=== PATIENT | male | born 1955 | race Caucasian/White ===

== ENCOUNTER 2017-11-23 14:30 | Outpatient (RCR) | payer MEDICARE ==
[2016-06-16 16:58] VITALS: BMI 24.1
--- NOTE | 2017-08-30 12:06 | PT INITIAL EVALUATION ---
MEDICAL DIAGNOSIS: Dizziness, Headaches TREATMENT DIAGNOSIS: Dizziness, Headaches, Cervicalgia DATE OF ONSET: 08/24/17 SUBJECTIVE: Omar is a 62 year-old male presenting to physical therapy following a recent increase of dizziness and headaches. Headaches started around August 06 when he fell and hit his head on a coffee table, on the day following he fell off of the couch which make the headache worse and started the dizziness. In addition pt has an extensive history of neck and spinal pain with radiation in to extremities which has increased with recent falls. Pt reports pain and dizziness is increased with forward flexion when tying shoes, and when getting out of bed. Pt denies any increase with rolling in bed but not with certainty. Pt reports that sometimes at rest pain comes on as well as dizziness and really never goes away. Pt's is present throughout session. 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 OBJECTIVE: Pt has discoordinated palsy-like movements with decreased ability to maintain in a stationary position Posture: Forward trunk lean in standing with rounded shoulders, increased cervical lordosis and forward head ROM: Cervical ROM: flexion: full ROM with pain and headache, ext: full ROM with pain in chest and neck and dizziness, R rotation: Full ROM with pain on R side of neck and face radiating down R arm, L rotation: minimally dec ROM without pain, R side bending: moderate ROM restrictions with pain on R lateral neck, L side bending: moderate ROM restrictions with pain on L lateral neck Palpation: Pt is tender to palpation along all pericervical muscles and up into the occiput Special Tests: Vertebral Artery Testing: B (+) L>R dizziness in position with increased headache as well as pupillary constriction and dilation, no nystagmus present, symptoms decreased with return to neutral, symptoms increased as well with return to seated from test position. Mobility: Visual tracking without nystagmus in all motions or onset of dizziness , L eye convergence intact with R eye delay or maltracking Gait: Unsteady gait with wide TRICIA and frequent UE reaching for stability Other Objective Findings: BP 130/90 mmHg, Oxygen Sat 93% ASSESSMENT: Pt shows signs and symptoms of possible positional vertigo complicated by cervicalgia and possible recent TBI. Pt referred back to physician at this time for further testing including US of vertebral arteries and neuro consult as well. Physical therapy is indicated following clearance to decrease pt impairments listed above to improve pt function with ADL's. Short Term Goals In 3 weeks pt will report dizziness only with change in position and not at rest for improved functional mobility with ADL's. In 6 weeks pt will have <2 headaches per week for improved functional mobility with ADL's. In 6 weeks pt will improve cervical ROM to full without pain for improved functional ability to perform ADL's. In 6 weeks pt will be able to ambulate 1 lap around the track without LOB or UE reaching for improved functional gait with ambulation and ADL's. Patient's Goals Decrease dizziness and headaches PLAN: Patient to be seen for Manual Therapy/STM/MET Strengthening/condition Ice/Heat Range of Motion Spinal Stabilization Ultrasound Stretching Iontophoresis Neuromuscular Re-ed Closed Chain Program Electrical Stim Posture/Body mechanics Gait Trg/Balance Trg Biofeedback Home Exercise Program Mech./Manual Traction Therapeutic Activities 3x/Week for 6 Weeks If you have any questions, comments, or concerns about this report or plan, please contact me at . Thank you, Shila Lux, PT, DPT, CLT MTDD
--- NOTE | 2017-10-18 15:22 | PT PLAN OF CARE ---
Physician: JANINA Valencia Patient is being seen: 2-3x/Week Therapist: Shila Lux, PT, DPT, CLT Medical Diagnosis: Dizziness, Headaches Treatment Diagnosis: Dizziness, Headaches, Cervicalgia Date of Onset: 08/24/17 Date of Initial Evaluation: 08/29/17 Date patient was last seen: 10/17/17 Number of treatments: 10 Number of cancellations/No shows: 0 INTERVENTIONS: Manual Therapy/STM/MET Strengthening/condition Ice/Heat Range of Motion Spinal Stabilization Ultrasound Stretching Iontophoresis Neuromuscular Re-ed Closed Chain Program Electrical Stim Posture/Body mechanics Gait Trg/Balance Trg Biofeedback Home Exercise Program Mech./Manual Traction Therapeutic Activities GOALS: In 3 weeks pt will report dizziness only with change in position and not at rest for improved functional mobility with ADL's. MET In 6 weeks pt will have <2 headaches per week for improved functional mobility with ADL's. In Progress In 6 weeks pt will improve cervical ROM to full without pain for improved functional ability to perform ADL's. In Progress In 6 weeks pt will be able to ambulate 1 lap around the track without LOB or UE reaching for improved functional gait with ambulation and ADL's. MET PATIENT'S GOAL: Decrease dizziness and headaches Status of Patient's Goals: In Progress Patient Compliance: Good Prognosis: Good Reasons for continuing therapy: Omar shows improvement with treatment with decreased radiating pain in his R arm, decreased headaches overall to only around 20% of the time as well as decreased dizziness now only occurring with positional change. Pt to be reassessed and further sessions for BPPV as cervical pain has decreased and pt is able to more tolerate test positions. Pt cervical ROM shows improvements with lingering deficits left side movement. ROM: Cervical ROM: flexion: 34 degrees, ext: 40 degrees with dizziness, R rotation: 80 degrees, L rotation: 70 degrees, R side bendin degrees, L side bendin degrees Palpation: Pt is tender to palpation along all pericervical muscles and up into the occiput If you have any questions or concerns, please feel free to contact me at [phone]. Thank you, Shila Lux, PT, DPT, CLT [facility]
--- NOTE | 2017-11-16 16:44 | PT PLAN OF CARE ---
Physician: JANINA Valencia Patient is being seen: 2-3x/Week Therapist: Shila Lux, PT, DPT, CLT Medical Diagnosis: Dizziness, Headaches Treatment Diagnosis: Dizziness, Headaches, Cervicalgia Date of Onset: 08/24/17 Date of Initial Evaluation: 08/29/17 Date patient was last seen: 11/16/17 Number of treatments: 20 Number of cancellations/No shows: 3 INTERVENTIONS: Manual Therapy/STM/MET Strengthening/condition Ice/Heat Range of Motion Spinal Stabilization Ultrasound Stretching Iontophoresis Neuromuscular Re-ed Closed Chain Program Electrical Stim Posture/Body mechanics Gait Trg/Balance Trg Biofeedback Home Exercise Program Mech./Manual Traction Therapeutic Activities GOALS: In 3 weeks pt will report dizziness only with change in position and not at rest for improved functional mobility with ADL's. MET In 6 weeks pt will have <2 headaches per week for improved functional mobility with ADL's. In Progress In 6 weeks pt will improve cervical ROM to full without pain for improved functional ability to perform ADL's. In Progress In 6 weeks pt will be able to ambulate 1 lap around the track without LOB or UE reaching for improved functional gait with ambulation and ADL's. MET PATIENT'S GOAL: Decrease dizziness and headaches Status of Patient's Goals: In Progress Patient Compliance: Good Prognosis: Good Reasons for continuing therapy: Omar shows improved functional ambulation without any dizziness or loss of balance. R UE pain continues to show progress with centralization of pain to the shoulder and neck only without radiation into the elbow except when pt is not performing his exercises. Following recent fall pt had increased pain and stiffness which shows improvement with ambulation. Further PT is indicated to continue with centralization and decrease in pain as well as improve pt function with dizziness and decrease headaches. ROM: Cervical ROM: flexion: 45 degrees, ext: 40 degrees, R rotation: 80 degrees , L rotation: 70 degrees, R side bendin degrees, L side bendin degrees Palpation: Pt is tender to palpation along all pericervical muscles and up into the occiput If you have any questions or concerns, please feel free to contact me at . Thank you, Shila Lux, PT, DPT, CLT [facility]
[~2017-11-23 14:30] MED LIST: AMIT-108 PO; ARI2 PO; BUPR-126 PO; CITA-141 PO; CLON-298 PO; DIA5 PO; DIAZ-305 PO; DOCU-416 PO; GABA-549 PO; HYDR50CA48 PO; IBUP800T37 PO; KET10 PO; LEVO25TA57 PO; LOR5/325 PO; MECL25TA9 PO; MELA1TAB23 PO; MELO-207 PO; MIRT-1; MIRT-18 PO; MIRT-20 PO; MIRT-22 PO; MULT-1167 PO; MULT-1379 PO; OMEP-125 PO; ONDA4TAB PO; ONDA4TAB97 PO; OXYC-865 PO; PANT20TA27 PO; PARO40TA88 PO; PRAM0.2520 PO; PRAM0.2524 PO; PRED-1 PO; RIV10 PO; SUCR1TAB51 PO; TAMS0.4C70 PO; [UNRECOGNIZED DRUG - CODE] MM; [UNRECOGNIZED DRUG - REMARK]
== END 2017-11-27 ==
LOC: PT 14:30
PROVIDERS: ATTEND Physician Assistant
DX: R42 Dizziness and giddiness (principal); R51 Headache; R11.10 Vomiting, unspecified; R19.7 Diarrhea, unspecified; R91.1 Solitary pulmonary nodule; Z87.891 Personal history of nicotine dependence; Z87.820 Personal history of traumatic brain injury; M54.2 Cervicalgia
CPT/HCPCS: 97163

== ENCOUNTER 2017-12-13 11:15 | Outpatient (RCR) | payer MEDICARE ==
[2016-06-16 16:58] VITALS: BMI 24.1
--- NOTE | 2017-12-13 12:32 | PT PLAN OF CARE ---
Physician: JANINA Valencia Patient is being seen: 2-3x/Week Therapist: Shila Lux, PT, DPT, CLT Medical Diagnosis: Dizziness, Headaches Treatment Diagnosis: Dizziness, Headaches, Cervicalgia Date of Onset: 08/24/17 Date of Initial Evaluation: 08/29/17 Date patient was last seen: 12/13/17 Number of treatments: 24 Number of cancellations/No shows: 3 INTERVENTIONS: Manual Therapy/STM/MET Strengthening/condition Ice/Heat Range of Motion Spinal Stabilization Ultrasound Stretching Iontophoresis Neuromuscular Re-ed Closed Chain Program Electrical Stim Posture/Body mechanics Gait Trg/Balance Trg Biofeedback Home Exercise Program Mech./Manual Traction Therapeutic Activities GOALS: In 3 weeks pt will report dizziness only with change in position and not at rest for improved functional mobility with ADL's. MET In 6 weeks pt will have <2 headaches per week for improved functional mobility with ADL's. MET In 6 weeks pt will improve cervical ROM to full without pain for improved functional ability to perform ADL's. MET In 6 weeks pt will be able to ambulate 1 lap around the track without LOB or UE reaching for improved functional gait with ambulation and ADL's. MET PATIENT'S GOAL: Decrease dizziness and headaches Status of Patient's Goals: 4/4 Goals MET Patient Compliance: Good Prognosis: Good Reasons for discharge from therapy: Omar is to discharge from physical therapy at this time secondary to completion of 4/4 functional goals. Despite gains in cervical motion and mobility pt shows lingering pain and muscular tightness in remaining in the anterior chest, neck and shoulders. However, pain is reduced with improved posture and cervical extension when pt is compliant with HEP. Upon discharge pt reports that dizziness is now only a couple times a week and goes away quickly. Pt is to follow up with further PT at a later time if pain persists and when compliance is more likely. ROM: Cervical ROM: Full with stretch sensation only with L SB Palpation: Pt is tender to palpation along all pericervical muscles and up into the occiput If you have any questions or concerns, please feel free to contact me at [phone]. Thank you, Shila Lux, PT, DPT, CLT [facility]
== END 2017-12-13 18:00 | disposition home or self-care (01) ==
LOC: PT 11:15
PROVIDERS: ATTEND Physician Assistant
DX: R42 Dizziness and giddiness (principal); R51 Headache; R11.10 Vomiting, unspecified; R19.7 Diarrhea, unspecified; R91.1 Solitary pulmonary nodule; Z87.891 Personal history of nicotine dependence; Z87.820 Personal history of traumatic brain injury; M54.2 Cervicalgia; E03.9 Hypothyroidism, unspecified

== ENCOUNTER 2018-01-10 01:39 | Emergency (ER) | payer MEDICARE ==
[2016-06-16 16:58] VITALS: Wt 77.1 kg
[~2018-01-10 01:39] MED LIST changes: -ACET-1966 PO; -DIAZ1KIT6 RC; -LEVE-14 PO; -TIZA2CAP7 PO
[2018-01-10] MEDS ORDERED: NS(*) 0.9% 1000 ML BAG 1,000 ML IV ONE (01:50)
[2018-01-10] MEDS ORDERED: ACET-1966 PO (02:06)
[2018-01-10] MEDS ORDERED: OMEP-125 PO (02:06)
[2018-01-10] MEDS ORDERED: TIZA2CAP7 PO (02:06)
--- NOTE | 2018-01-10 02:08 | ER Report ---
History and Physical Time Seen By MD: 01:43 Hx. of Stated Complaint: PT HAD SEIZURE THIS TONIGHT. HAS HISTORY OF SAME. COMBATIVE ON SCENE. 2 MG ATIVAN IM GIVEN IN FIELD. HPI/ROS CHIEF COMPLAINT: Seizure HISTORY OF PRESENT ILLNESS: 62-year-old male is currently undergoing a workup for seizures but EEG was normal he is pending a sleep study at this time and is following with her neurologist presents with seizure activity including foaming at the mouth I rolling tonic-clonic convulsion of trunk and 4 extremities per followed by a postictal state where he is usually around incoherently in the house. He was brought in by EMS. 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 REVIEW OF SYSTEMS: Constitutional: No fever, no chills. Eyes: No discharge. ENT: No sore throat. Cardiovascular: No chest pain, no palpitations. Respiratory: No cough, no shortness of breath. Gastrointestinal: No abdominal pain, no vomiting. Genitourinary: No hematuria. Musculoskeletal: No back pain. Skin: No rashes. Neurological: No headache. Allergies: Coded Allergies: No Known Drug Allergies (Unverified , 01/10/18) Home Meds Reported Medications Tizanidine Hcl (ZANAFLEX) 2 Mg Capsule, 2 MG PO TID, CAPSULE 01/10/18 Omeprazole (OMEPRAZOLE) 20 Mg Capsule.dr, 1 CAP PO DAILY, CAP 01/10/18 Acetaminophen (TYLENOL) 325 Mg Tablet, 325 MG PO Q6H Y for PAIN, TAB 01/10/18 Meclizine Hcl (MECLIZINE HCL) 25 Mg Tablet, 25 MG PO BID 08/24/17 Hydroxyzine Pamoate (HYDROXYZINE PAMOATE) 50 Mg Capsule, 50 MG PO DAILY, CAPSULE 03/14/17 Amitriptyline Hcl (AMITRIPTYLINE HCL) 50 Mg Tablet, 50 MG PO QHS, #5 TAB 03/14/17 Pramipexole Di-Hcl (PRAMIPEXOLE DIHYDROCHLORIDE) 0.25 Mg Tablet, 1 TAB PO DAILY , #30 05/21/16 Levothyroxine Sodium (SYNTHROID) 25 Mcg Tablet, 50 MCG PO QDAY 11/05/15 Multivitamin With Minerals (MEN'S ONE DAILY) 1 Each Tablet, 1 EACH PO DAILY 02/01/15 Discontinued Reported Medications Melatonin (MELATONIN) 1 Mg Tablet, 1 MG PO DAILY 08/24/17 Hx Smoking: No Smoking Status: Never Smoker Exposure to Second Hand Smoke?: No Hx Substance Use Disorder: No Hx Alcohol Use: Yes (quit long time ago) Constitutional Vital Sign - Last 24 Hours 01/10/18 01/10/18 01:43 02:02 Temp 97.8 Pulse 86 Resp 14 B/P (MAP) 124/61 Pulse Ox 85 O2 Delivery Room Air O2 Flow Rate 2.0 Physical Exam General Appearance: The patient is alert, has no immediate need for airway protection and no signs of toxicity. Acute distress Eyes: Pupils equal and round no pallor or injection. ENT, Mouth: Mucous membranes are moist. Respiratory: There are no retractions, lungs are clear to auscultation. Cardiovascular: Regular rate and rhythm. No murmurs gallops or rubs Gastrointestinal: Abdomen is soft and non tender, no masses, bowel sounds normal. Neurological: Normal sensorimotor exam to cranial nerves Skin: Warm and dry, no rashes. Musculoskeletal: Neck is supple non tender. Extremities are nontender, nonswollen and have full range of motion. [ ] DIFFERENTIAL DIAGNOSIS: After history and physical exam differential diagnosis was considered for seizure, intracranial hemorrhage, encephalitis, West Nile, typical seizure related behavior, other etiology including psychiatric disorder Medical Decision Making Data Points Result Diagram: 01/10/18 0330 01/10/18 0330 Laboratory Hematology Test 01/10/18 03:30 01/10/18 03:40 Red Blood Count 5.14 M/uL (4.00-5.60) Mean Corpuscular Volume 86.2 fL (80.0-96.0) Mean Corpuscular Hemoglobin 30.1 pg (26.0-33.0) Mean Corpuscular Hemoglobin Concent 34.9 g/dL (32.0-36.0) Red Cell Distribution Width 12.5 % (11.5-14.5) Mean Platelet Volume 6.7 fL (7.2-11.1) Neutrophils (%) (Auto) 82.0 % (39.4-72.5) Lymphocytes (%) (Auto) 11.8 % (17.6-49.6) Monocytes (%) (Auto) 4.5 % (4.1-12.4) Eosinophils (%) (Auto) 1.1 % (0.4-6.7) Basophils (%) (Auto) 0.6 % (0.3-1.4) Nucleated RBC Relative Count (auto) 0.0 /100WBC Neutrophils # (Auto) 7.8 K/uL (2.0-7.4) Lymphocytes # (Auto) 1.1 K/uL (1.3-3.6) Monocytes # (Auto) 0.4 K/uL (0.3-1.0) Eosinophils # (Auto) 0.1 K/uL (0.0-0.5) Basophils # (Auto) 0.1 K/uL (0.0-0.1) Nucleated RBC Absolute Count (auto) 0.00 K/uL Prothrombin Time 14.2 seconds (12.0-14.4) Prothromb Time International Ratio 1.09 Activated Partial Thromboplast Time 26 seconds (23-35) Sodium Level 139 mmol/L (137-145) Potassium Level 3.6 mmol/L (3.5-5.0) Chloride Level 105 mmol/L (98-107) Carbon Dioxide Level 24 mmol/L (22-30) Blood Urea Nitrogen 13 mg/dl (9-21) Creatinine 1.00 mg/dl (0.66-1.25) Glomerular Filtration Rate Calc > 60.0 Random Glucose 129 mg/dl (75-110) Calcium Level 9.2 mg/dl (8.4-10.2) Total Bilirubin 0.8 mg/dl (0.2-1.3) Aspartate Amino Transf (AST/SGOT) 36 U/L (0-35) Alanine Aminotransferase (ALT/SGPT) 48 U/L (0-56) Alkaline Phosphatase 65 U/L (0-126) Troponin I < 0.012 ng/ml B-Type Natriuretic Peptide 14 pg/ml (0-100) Total Protein 6.2 gm/dl (6.3-8.2) Albumin 3.6 g/dl (3.5-5.0) Serum Alcohol < 10 mg/dl Urine Opiates Screen Negative Urine Barbiturates Screen Negative Ur Tricyclic Antidepressants Screen Positive Urine Phencyclidine Screen Negative Urine Amphetamines Screen Negative Urine Benzodiazepines Screen Negative Urine Cocaine Screen Negative Urine Cannabinoids Screen Negative Chemistry Test 01/10/18 03:30 01/10/18 03:40 White Blood Count 9.5 k/uL (4.5-11.0) Red Blood Count 5.14 M/uL (4.00-5.60) Hemoglobin 15.5 g/dL (14.0-18.0) Hematocrit 44.3 % (42.0-52.0) Mean Corpuscular Volume 86.2 fL (80.0-96.0) Mean Corpuscular Hemoglobin 30.1 pg (26.0-33.0) Mean Corpuscular Hemoglobin Concent 34.9 g/dL (32.0-36.0) Red Cell Distribution Width 12.5 % (11.5-14.5) Platelet Count 228 K/uL (150-450) Mean Platelet Volume 6.7 fL (7.2-11.1) Neutrophils (%) (Auto) 82.0 % (39.4-72.5) Lymphocytes (%) (Auto) 11.8 % (17.6-49.6) Monocytes (%) (Auto) 4.5 % (4.1-12.4) Eosinophils (%) (Auto) 1.1 % (0.4-6.7) Basophils (%) (Auto) 0.6 % (0.3-1.4) Nucleated RBC Relative Count (auto) 0.0 /100WBC Neutrophils # (Auto) 7.8 K/uL (2.0-7.4) Lymphocytes # (Auto) 1.1 K/uL (1.3-3.6) Monocytes # (Auto) 0.4 K/uL (0.3-1.0) Eosinophils # (Auto) 0.1 K/uL (0.0-0.5) Basophils # (Auto) 0.1 K/uL (0.0-0.1) Nucleated RBC Absolute Count (auto) 0.00 K/uL Prothrombin Time 14.2 seconds (12.0-14.4) Prothromb Time International Ratio 1.09 Activated Partial Thromboplast Time 26 seconds (23-35) Glomerular Filtration Rate Calc > 60.0 Calcium Level 9.2 mg/dl (8.4-10.2) Total Bilirubin 0.8 mg/dl (0.2-1.3) Aspartate Amino Transf (AST/SGOT) 36 U/L (0-35) Alanine Aminotransferase (ALT/SGPT) 48 U/L (0-56) Alkaline Phosphatase 65 U/L (0-126) Troponin I < 0.012 ng/ml B-Type Natriuretic Peptide 14 pg/ml (0-100) Total Protein 6.2 gm/dl (6.3-8.2) Albumin 3.6 g/dl (3.5-5.0) Serum Alcohol < 10 mg/dl Urine Opiates Screen Negative Urine Barbiturates Screen Negative Ur Tricyclic Antidepressants Screen Positive Urine Phencyclidine Screen Negative Urine Amphetamines Screen Negative Urine Benzodiazepines Screen Negative Urine Cocaine Screen Negative Urine Cannabinoids Screen Negative Coagulation Test 01/10/18 03:30 Prothrombin Time 14.2 seconds Prothromb Time International Ratio 1.09 Activated Partial Thromboplast Time 26 seconds Toxicology Test 01/10/18 03:30 01/10/18 03:40 Serum Alcohol < 10 mg/dl Urine Opiates Screen Negative Urine Barbiturates Screen Negative Ur Tricyclic Antidepressants Screen Positive Urine Phencyclidine Screen Negative Urine Amphetamines Screen Negative Urine Benzodiazepines Screen Negative Urine Cocaine Screen Negative Urine Cannabinoids Screen Negative EKG/Imaging EKG Interpretation 12 lead EKG: My read O2 19 Rhythm: normal sinus rhythm [place]: normal QRS: normal ST segments: normal Overall impression: Normal EKG ED Course/Re-evaluation ED Course Sleeping comfortably daily arouse at this time 01/10/2018 5:00:13 am no seizure activity was witnessed wall in the ER. I recommended she call the neurologist tomorrow to follow-up and explain what happened and it sounds like he may be having seizures. Prolactin level will be sent out and should be followed up by outpatient PCP or neurologist. Results were discussed with the patient and his at this time 01/10/2018 5:00:53 am Decision to Disposition Date: Jan 10, 2018 Decision to Disposition Time: 05:01 Depart Departure Latest Vital Signs Vital Signs Date Time Temp Pulse Resp B/P (MAP) Pulse Ox O2 Delivery O2 Flow Rate FiO2 01/10/18 02:02 2.0 01/10/18 01:43 97.8 86 14 124/61 85 Room Air Impression: Primary Impression: Convulsions Condition: Improved Disposition: HOME OR SELF-CARE Referrals: JC MARTINEZ PA-C (PCP) New Scripts Diazepam (DIASTAT ACUDIAL) 1 Each Kit 1 EACH RC 1-2XD Y for SEIZURE, #1 KIT Prov: MALIA YANG MD 01/10/18 Patient Instructions: Recurrent Seizures in Adults (ED) Problem Qualifiers Primary Impression: Convulsions Convulsion type: unspecified Qualified Codes: R56.9 - Unspecified convulsions MALIA YANG MD Jan 10, 2018 02:08
[2018-01-10] MEDS ORDERED: ASPIRIN 81 MG CHEW PO ONE (02:15)
--- NOTE | 2018-01-10 02:54 | RADIOLOGY IMAGING REPORT ---
FACILITY: [facility] - [place] PATIENT NAME: Omar Zarate : 1955 MR: [id number] V: [id number] EXAM DATE: ORDERING PHYSICIAN: MALIA YANG TECHNOLOGIST: Location: [facility] [place] Patient: Omar Zarate : 1955 Visit/Account:[id number] Date of Sevice: 01/10/2018 Exam type: CHEST SINGLE AP History: Comparison: 08/28/2016. Findings: Lung volumes are low. There is pulmonary vascular and interstitial prominence which could represent i nterstitial edema without overt failure. No focal infiltrate, pleural effusion or pneumothorax. Heart size is slightly prominent. The osseous structures are unremarkable. IMPRESSION: 1. Perihilar pulmonary vascular and interstitial prominence could represent interstitial edema withou t overt failure. Report Dictated By: Gary Lawrence MD at 01/10/2018 2:47 AM Report E-Signed By: Gary Lawrence MD at 01/10/2018 2:49 AM WSN:[id number]
--- NOTE | 2018-01-10 02:57 | EKG ---
FACILITY: [facility] PATIENT NAME: JOSSY NEVAREZ : [id number] MR: [id number] V: [id number] EXAM DATE: ORDERING PHYSICIAN: MALIA YANG TECHNOLOGIST: RIC Test Reason : HTN Blood Pressure : / mmHG Vent. Rate : 077 BPM Atrial Rate : 077 BPM P-R Int : 168 ms QRS Dur : 092 ms QT Int : 390 ms P-R-T Axes : 073 059 060 degrees QTc Int : 441 ms Normal sinus rhythm Normal ECG When compared with ECG of 24-SEP-2016 13:56, Previous ECG has undetermined rhythm, needs review Nonspecific T wave abnormality no longer evident in Inferior leads Confirmed by MARI BELLA ([id number]) on 01/10/2018 12:31:05 PM Referred By: Confirmed By:MARI BELLA
--- NOTE | 2018-01-10 03:20 | RADIOLOGY IMAGING REPORT ---
FACILITY: [facility] - [place] PATIENT NAME: Omar Zarate : 1955 MR: [id number] V: [id number] EXAM DATE: ORDERING PHYSICIAN: MALIA YANG TECHNOLOGIST: Location: [facility] - [place] Patient: Omar Zarate : 1955 Visit/Account:[id number] Date of Sevice: 01/10/2018 HEAD W/O CONTRAST HISTORY: Altered mental status. History of seizures. Wheezing and dyspnea. COMPARISON: 07/13/2017 and studies dating to 05/07/2015. TECHNIQUE: Axial images were obtained from the skull base to the vertex without contrast. Sagittal an d coronal reformats were performed. One of the following dose optimization techniques was utilized in the performance of this exam: Autom ated exposure control; adjustment of the mA and/or kV according to the patient's size; or use of an i terative reconstruction technique. Specific details can be referenced in the facility's radiology CT exam operational policy. CONTRAST: None. FINDINGS: Brain: No intracranial hemorrhage, mass or edema. Ventricles and sulci: Sulci are normal. Ventricular size and configuration is normal. Osseous structures: Intact. 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 Sinuses and mastoids: There is mild mucosal thickening of the ethmoid sinuses. Nasal septum bows slig htly toward the right. The mastoids are clear. Orbits and soft tissues: Normal. IMPRESSION: 1. No acute intracranial abnormality. Report Dictated By: Angela Schultz at 01/10/2018 2:49 AM Report E-Signed By: Angela Schultz at 01/10/2018 2:54 AM WSN:[id number]
[2018-01-10 03:36] LABS: PLATELET COUNT, AUTOMATED 228 K/uL (150-450)
[2018-01-10 03:46] LABS: INR 1.09
[2018-01-10 05:00] VITALS: BP 117/83
[2018-01-10] MEDS ORDERED: DIAZ1KIT6 RC (05:03)
== END 2018-01-10 05:20 | disposition home or self-care (01) ==
LOC: ER 01:48
DX: R56.9 Unspecified convulsions (principal)
CPT/HCPCS: 36415; 70450; 71045; 80305; 83880; 84146; 84484; 85025; 85610; 85730; 93005; 96360; 99284; A9270; G0480; J7030; 80320; 82040; 82247; 82310; 82374; 82435; 82565; 82947; 84075; 84132; 84155; 84295; 84450; 84460; 84520

== ENCOUNTER 2018-01-10 21:23 | Emergency (ER) | payer MEDICARE ==
[2016-06-16 16:58] VITALS: Wt 77.2 kg
[~2018-01-10 21:23] MED LIST changes: +ACET-1966 PO; +DIAZ1KIT6 RC; +TIZA2CAP7 PO
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
[2018-01-10 23:01] VITALS: BP 121/92
[2018-01-10] MEDS ORDERED: DIPHTH/TETANUS/ACEL. PERTUSSIS IM ONLY ONE (23:20)
== END 2018-01-10 23:33 | disposition home or self-care (01) ==
LOC: ER 21:41
DX: S01.112A Laceration without foreign body of left eyelid and periocular area, initial encounter (principal)
CPT/HCPCS: 90471; 90715; 99282

== ENCOUNTER → 2018-01-10 | Outpatient (CLI) | payer MEDICARE ==
[2016-06-16 16:58] VITALS: BMI 24.1
[~2018-01-10] MED LIST changes: +ACET-1966 PO; +DIAZ1KIT6 RC; +LEVE-14 PO; +TIZA2CAP7 PO
== END ==
LOC: AMB 01:14
PROVIDERS: ATTEND Nurse Practitioner
DX: R41.82 Altered mental status, unspecified (principal); G40.909 Epilepsy, unspecified, not intractable, without status epilepticus
CPT/HCPCS: A0425; A0427

== ENCOUNTER 2018-01-13 11:58 | Emergency (ER) | payer MEDICARE ==
[2016-06-16 16:58] VITALS: Wt 77.1 kg
[2018-01-13] MEDS ORDERED: OLANZapine 10 MG VIAL IM ONLY ONE (12:20)
[2018-01-13] MEDS ORDERED: diphenhydrAMINE 50 MG/ML VIAL IM ONE (12:20)
[2018-01-13] MEDS ORDERED: WATER STERILE 10 ML VIAL IM ONLY ONE (12:20)
[2018-01-13] MEDS ORDERED: LORazepam 2 MG/ML VIAL IM ONE (12:20)
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
[2018-01-13 12:31] LABS: PLATELET COUNT, AUTOMATED 332 K/uL (150-450)
[2018-01-13] MEDS ORDERED: WATER FOR INJ,STERILE 20 ML 20 ML ONE (12:59)
[2018-01-13] MEDS ORDERED: levETIRAcetam 500 MG TAB PO ONE (13:05)
[2018-01-13] MEDS ORDERED: LEVE-14 PO (14:23)
[2018-01-13 14:30] VITALS: BP 98/83
== END 2018-01-13 15:00 | disposition home or self-care (01) ==
LOC: ER 12:07
DX: G40.909 Epilepsy, unspecified, not intractable, without status epilepticus (principal); F41.9 Anxiety disorder, unspecified
CPT/HCPCS: 83735; 84443; 85025; 96372; 99284; A4216; A9270; G0480; J1200; J2060; J3490; 80320; 80329; 82040; 82247; 82310; 82374; 82435; 82565; 82947; 84075; 84132; 84155; 84295; 84450; 84460; 84520

== ENCOUNTER → 2018-03-13 | Outpatient (CLI) | payer MEDICARE, BC ==
[2016-06-16 16:58] VITALS: BMI 24.1
[~2018-03-13] MED LIST changes: +LEVE-14 PO
== END ==
LOC: RESP 20:59
PROVIDERS: ATTEND Physician Assistant
DX: G47.33 Obstructive sleep apnea (adult) (pediatric) (principal)

== ENCOUNTER 2018-04-04 09:58 | Emergency (ER) | payer MEDICARE, BC ==
[2016-06-16 16:58] VITALS: Wt 73.5 kg
[~2018-04-04 09:58] MED LIST changes: -CLON-298 PO; +CLON-331 PO
--- NOTE | 2018-04-04 10:01 | ER Report ---
History and Physical Time Seen By MD: 10:00 HPI/ROS CHIEF COMPLAINT: Possible Esophageal foreign body HISTORY OF PRESENT ILLNESS: Patient is a 63-year-old male referred from the family practice office for possible esophageal foreign body. States he was taking his medications this morning and the 2nd pill felt like it got stuck. He localizes the discomfort to the area around the sternal notch. He is able tolerate liquids as well as saliva. He does report discomfort to that area. He denies ever having similar episodes in the past. REVIEW OF SYSTEMS: Constitutional: No fever, no chills. ENT: Sore throat, sensation of foreign body Cardiovascular: [No chest pain, no palpitations.] Respiratory: No cough, no shortness of breath. Gastrointestinal: No abdominal pain, no vomiting. \\ Allergies: Coded Allergies: No Known Drug Allergies (Unverified , 04/04/18) Home Meds Active Scripts Levetiracetam (KEPPRA) 500 Mg Tablet, 500 MG PO BID, #60 TAB Prov:VIKASH DIXON 01/13/18 Diazepam (DIASTAT ACUDIAL) 1 Each Kit, 1 EACH RC 1-2XD Y for SEIZURE, #1 KIT Prov:MALIA YANG MD 01/10/18 Reported Medications Tizanidine Hcl (ZANAFLEX) 2 Mg Capsule, 2 MG PO TID, CAPSULE 01/10/18 Omeprazole (OMEPRAZOLE) 20 Mg Capsule.dr, 1 CAP PO DAILY, CAP 01/10/18 Acetaminophen (TYLENOL) 325 Mg Tablet, 325 MG PO Q6H Y for PAIN, TAB 01/10/18 Hydroxyzine Pamoate (HYDROXYZINE PAMOATE) 50 Mg Capsule, 50 MG PO DAILY, CAPSULE 03/14/17 Amitriptyline Hcl (AMITRIPTYLINE HCL) 50 Mg Tablet, 50 MG PO QHS, #5 TAB 03/14/17 Pramipexole Di-Hcl (PRAMIPEXOLE DIHYDROCHLORIDE) 0.25 Mg Tablet, 1 TAB PO DAILY , #30 05/21/16 Levothyroxine Sodium (SYNTHROID) 25 Mcg Tablet, 50 MCG PO QDAY 11/05/15 Multivitamin With Minerals (MEN'S ONE DAILY) 1 Each Tablet, 1 EACH PO DAILY 02/01/15 Past Medical/Surgical History History of hypothyroidism, history of traumatic brain injury 10 years ago. Hx Smoking: No Smoking Status: Never Smoker Exposure to Second Hand Smoke?: No Hx Substance Use Disorder: No Hx Alcohol Use: Yes (quit long time ago) Constitutional Vital Sign - Last 24 Hours 04/04/18 04/04/18 04/04/18 04/04/18 10:02 10:02 10:30 10:58 Temp 97.6 Pulse 62 59 Resp 20 B/P (MAP) 110/93 (99) 110/93 117/81 (93) Pulse Ox 93 95 O2 Delivery Room Air 04/04/18 04/04/18 11:00 11:30 B/P (MAP) 120/85 (97) 113/86 (95) Physical Exam General Appearance: The patient is alert, has no immediate need for airway protection and no current signs of toxicity. Eyes: Pupils equal and round no injection. Oropharynx: Clear mucous membranes moist. Patient is able to speak in full sentences and is tolerating secretions well. Respiratory: Chest is non tender, lungs are clear to auscultation. Cardiac: regular rate and rhythm Gastrointestinal: Abdomen is soft and non tender, no masses, bowel sounds normal. Musculoskeletal: Neck: Neck is supple and non tender. Extremities have full range of motion and are non tender. Skin: No rashes or lesions. Medical Decision Making EKG/Imaging Imaging Esophagram reveals no foreign body ED Course/Re-evaluation ED Course 04/04/2018 10:30:45 am my suspicion is the patient may be suffering from a "pill esophagitis". Patient appears to tolerate fluids without difficulty. He has no respiratory distress or complaints. He does point to the sternal notch as the location of his discomfort. Plan at this time will be x-ray of the chest. We'll also consider some type of esophageal foreign body swallowing test. Decision to Disposition Date: Apr 04, 2018 Decision to Disposition Time: 12:56 Depart Departure Latest Vital Signs Vital Signs Date Time Temp Pulse Resp B/P (MAP) Pulse Ox O2 Delivery O2 Flow Rate FiO2 04/04/18 11:30 113/86 (95) 04/04/18 10:58 59 95 04/04/18 10:02 97.6 20 Room Air Impression: Primary Impression: Dysphagia Condition: Improved Disposition: HOME OR SELF-CARE Referrals: JC MARTINEZ PA-C (PCP) 2 Days if symptoms persist New Scripts Mag Hydrox/Aluminum Hyd/Simeth (Maalox Advanced Suspension) 200 Mg-200 Mg-20 Mg/ 5 Ml Oral.susp 5 ML PO Q6H for throat discomfort, #120 ML 0 Refills Prov: PATY HOOVER MD 04/04/18 Patient Instructions: Dysphagia (ED) Problem Qualifiers Primary Impression: Dysphagia Dysphagia type: unspecified Qualified Codes: R13.10 - Dysphagia, unspecified PATY HOOVER MD Apr 04, 2018 10:01
[2018-04-04] MEDS ORDERED: GI COCKTAIL 60 ML BTL PO PRN (10:35)
--- NOTE | 2018-04-04 10:54 | RADIOLOGY IMAGING REPORT ---
FACILITY: [facility] PATIENT NAME: Omar Zarate : 1955 MR: [id number] V: [id number] EXAM DATE: ORDERING PHYSICIAN: PATY HOOVER TECHNOLOGIST: Location: [facility] Patient: Omar Zarate : 1955 Visit/Account:[id number] Date of Sevice: 04/04/2018 CHEST PA AND LAT COMPARISON: None. HISTORY: Chest pain after swallowing a pill, which feels stuck FINDINGS: CARDIAC/VASC: No cardiac silhouette abnormality or cardiomegaly. Unremarkable pulmonary vasculatu re. MEDIASTINUM: No visible mass or adenopathy. LUNGS/PLEURA: No pneumothorax. No significant pulmonary parenchymal abnormalities. No effusion or p leural thickening. BONES: No fracture or visible bony lesion. OTHER: No radiopaque foreign bodies or evidence of asymmetric air trapping to suggest a lodged radiol ucent foreign body. IMPRESSION: No acute cardiopulmonary process. No radiopaque foreign bodies. Report Dictated By: Seth Lyles at 04/04/2018 10:50 AM Report E-Signed By: Seth Lyles at 04/04/2018 10:50 AM WSN:[id number]
[2018-04-04] MEDS ORDERED: MAG HYD/AL HYD/SIMETH 30ML UDC PO ONE (10:55)
[2018-04-04] MEDS ORDERED: LIDOCAINE 2% VISC SLN 15ML UDC PO ONE (10:55)
[2018-04-04] MEDS ORDERED: ATRO/SCOPOL/HYOSCY/PB 5 ML ELX PO ONE (10:55)
[2018-04-04] MEDS ORDERED: BARIUM SULFATE 176 GM BTL PO ONE (11:16)
[2018-04-04] MEDS ORDERED: BARIUM SULFATE 340 GM POWD ONE (11:16)
--- NOTE | 2018-04-04 12:56 | RADIOLOGY IMAGING REPORT ---
[place] [facility] [place]IENT NAME: Omar Zarate : 1955 MR: [id number] V: [id number] EXAM DATE: ORDERING PHYSICIAN: PATY HOOVER TECHNOLOGIST: Location: [facility] Patient: Omar Zarate : 1955 Visit/Account:[id number] Date of Sevice: 04/04/2018 EXAMINATION: Double contrast esophagram 04/04/2018 10:49 AM HISTORY: r/o esophageal FB COMPARISON: Chest x-ray today FLUOROSCOPY TIME: 0.9 minutes DOSE: DAP was 219.13 uGy/m2 FINDINGS: The patient ingested thick barium upright. Hypopharyngeal motility is normal. Trace mauri ngeal penetration was initially demonstrated. After the ingestion of bicarbonate crystals he ingeste d additional thick barium upright followed by thin barium in the prone PERSON position. Esophageal yefri stalsis is normal. The esophagus distends normally. No focal stricture or irregularity. There is a minimal sliding hiatal hernia. Trace gastroesophageal reflux was provoked during the study. It was noted during the prone portion of the study the patient had aspirated barium which was lining the tr acheobronchial tree. Drinking of barium was terminated at that point. I also did not have the patie nt ingest a solid pill. IMPRESSION: 1. Aspiration of barium was noted during the study towards the latter portion. The exam was termina zhang at that point. 2. No esophageal foreign body, mass, or stricture was demonstrated. 3. The patient does have a small sliding hiatal hernia with trace esophageal reflux provoked during the exam. Report Dictated By: Jairon Pham MD at 04/04/2018 12:46 PM Report E-Signed By: Jairon Pham MD at 04/04/2018 12:51 PM WSN:[id number]
[2018-04-04] MEDS ORDERED: MAG-65 PO (12:57)
[2018-04-04 13:01] VITALS: BP 106/71
== END 2018-04-04 13:00 | disposition home or self-care (01) ==
LOC: ER 10:03
DX: R13.10 Dysphagia, unspecified (principal)
CPT/HCPCS: 71046; 74220; 99284; A9270

== ENCOUNTER 2018-05-17 03:39 | Emergency (ER) | payer MEDICARE, BC ==
[2016-06-16 16:58] VITALS: Wt 73.6 kg
[~2018-05-17 03:39] MED LIST changes: +MAG-65 PO
[2018-05-17 04:01] LABS: PLATELET COUNT, AUTOMATED 313 K/uL (150-450)
--- NOTE | 2018-05-17 04:15 | ER Report ---
History and Physical Time Seen By MD: 03:55 Hx. of Stated Complaint: woke up with restless leg symdrome. walking around he started having chest pain 05/27. ntg 0.4 asa 324 HPI/ROS CHIEF COMPLAINT: Chest pain HISTORY OF PRESENT ILLNESS: 63-year-old male with intermittent chest pain for several days. He is also having restless leg syndrome maggi. Patient called EMS to bring him in for evaluation. EMS transmitted an EKG that shows no ischemic changes. Patient's been having intermittent chest pain for 3 days. Tonloretta's restless leg syndrome is acting up as well. Patient thought he might be having a heart attack. Patient denies recent illness. Patient denies leg swelling or calf pain. REVIEW OF SYSTEMS: Respiratory: No cough, no dyspnea. Cardiovascular: As above Gastrointestinal: No vomiting, no abdominal pain. Musculoskeletal: No back pain. Allergies: Coded Allergies: No Known Drug Allergies (Unverified , 05/17/18) Home Meds Active Scripts Mag Hydrox/Aluminum Hyd/Simeth (Maalox Advanced Suspension) 200 Mg-200 Mg-20 Mg/5 Ml Oral.susp, 5 ML PO Q6H for throat discomfort, #120 ML 0 Refills Prov:PATY HOOVER MD 04/04/18 Levetiracetam (KEPPRA) 500 Mg Tablet, 500 MG PO BID, #60 TAB Prov:VIKASH DIXON 01/13/18 Diazepam (DIASTAT ACUDIAL) 1 Each Kit, 1 EACH RC 1-2XD PRN for SEIZURE, #1 KIT Prov:MALIA YANG MD 01/10/18 Reported Medications Tizanidine Hcl (ZANAFLEX) 2 Mg Capsule, 2 MG PO TID, CAPSULE 01/10/18 Omeprazole (OMEPRAZOLE) 20 Mg Capsule.dr, 1 CAP PO DAILY, CAP 01/10/18 Acetaminophen (TYLENOL) 325 Mg Tablet, 325 MG PO Q6H PRN for PAIN, TAB 01/10/18 Hydroxyzine Pamoate (HYDROXYZINE PAMOATE) 50 Mg Capsule, 50 MG PO DAILY, CAPSULE 03/14/17 Amitriptyline Hcl (AMITRIPTYLINE HCL) 50 Mg Tablet, 50 MG PO QHS, #5 TAB 03/14/17 Pramipexole Di-Hcl (PRAMIPEXOLE DIHYDROCHLORIDE) 0.25 Mg Tablet, 1 TAB PO DAILY, #30 05/21/16 Levothyroxine Sodium (SYNTHROID) 25 Mcg Tablet, 50 MCG PO QDAY 11/05/15 Multivitamin With Minerals (MEN'S ONE DAILY) 1 Each Tablet, 1 EACH PO DAILY 02/01/15 Past Medical/Surgical History Patient has a past medical history of TBI, angina, left knee injury, alcohol abuse, anxiety. Patient has no pertinent surgical history. Hx Smoking: No Smoking Status: Never Smoker Exposure to Second Hand Smoke?: No Hx Substance Use Disorder: No Hx Alcohol Use: Yes (quit long time ago) Constitutional Physical Exam General Appearance: The patient is alert, has no immediate need for airway protection and no current signs of toxicity.. Vital signs stable, afebrile, pulse ox normal HEENT: Pupils equal and round no injection. Oropharynx without redness or exudate, mucous members are moist Respiratory: Chest is non tender, lungs are clear to auscultation. Cardiac: regular rate and rhythm, no murmur Gastrointestinal: Abdomen is soft and non tender, no masses, bowel sounds normal. Musculoskeletal: Neck: Neck is supple and non tender. No lymphadenopathy Extremities have full range of motion and are non tender. Skin: No rashes or lesions. DIFFERENTIAL DIAGNOSIS: After history and physical exam differential diagnosis was considered for chest pain including but not limited to myocardial ischemia, pericarditis pulmonary embolus, chest wall pain, pleural inflammation and pulmonary infectious causes. Medical Decision Making Data Points Laboratory Hematology Test 05/17/18 03:42 Red Blood Count 5.58 M/uL (4.00-5.60) Mean Corpuscular Volume 88.2 fL (80.0-96.0) Mean Corpuscular Hemoglobin 29.9 pg (26.0-33.0) Mean Corpuscular Hemoglobin Concent 33.9 g/dL (32.0-36.0) Red Cell Distribution Width 13.8 % (11.5-14.5) Mean Platelet Volume 6.6 fL (7.2-11.1) Neutrophils (%) (Auto) 55.2 % (39.4-72.5) Lymphocytes (%) (Auto) 32.4 % (17.6-49.6) Monocytes (%) (Auto) 7.9 % (4.1-12.4) Eosinophils (%) (Auto) 3.5 % (0.4-6.7) Basophils (%) (Auto) 1.0 % (0.3-1.4) Nucleated RBC Relative Count (auto) 0.0 /100WBC Neutrophils # (Auto) 4.0 K/uL (2.0-7.4) Lymphocytes # (Auto) 2.4 K/uL (1.3-3.6) Monocytes # (Auto) 0.6 K/uL (0.3-1.0) Eosinophils # (Auto) 0.3 K/uL (0.0-0.5) Basophils # (Auto) 0.1 K/uL (0.0-0.1) Nucleated RBC Absolute Count (auto) 0.00 K/uL D-Dimer Quantitative (PE/DVT) < 0.27 ug/ml (0-0.50) Sodium Level 143 mmol/L (137-145) Potassium Level 4.3 mmol/L (3.5-5.0) Chloride Level 103 mmol/L (98-107) Carbon Dioxide Level 26 mmol/L (22-30) Blood Urea Nitrogen 15 mg/dl (9-21) Creatinine 1.10 mg/dl (0.66-1.25) Glomerular Filtration Rate Calc > 60.0 Random Glucose 104 mg/dl (75-110) Calcium Level 9.5 mg/dl (8.4-10.2) Total Bilirubin 0.4 mg/dl (0.2-1.3) Aspartate Amino Transf (AST/SGOT) 52 U/L (0-35) Alanine Aminotransferase (ALT/SGPT) 64 U/L (0-56) Alkaline Phosphatase 74 U/L (0-126) Troponin I < 0.012 ng/ml B-Type Natriuretic Peptide 13 pg/ml (0-100) Total Protein 8.2 g/dl (6.3-8.2) Albumin 5.0 g/dl (3.5-5.0) Chemistry Test 05/17/18 03:42 White Blood Count 7.3 k/uL (4.5-11.0) Red Blood Count 5.58 M/uL (4.00-5.60) Hemoglobin 16.7 g/dL (14.0-18.0) Hematocrit 49.2 % (42.0-52.0) Mean Corpuscular Volume 88.2 fL (80.0-96.0) Mean Corpuscular Hemoglobin 29.9 pg (26.0-33.0) Mean Corpuscular Hemoglobin Concent 33.9 g/dL (32.0-36.0) Red Cell Distribution Width 13.8 % (11.5-14.5) Platelet Count 313 K/uL (150-450) Mean Platelet Volume 6.6 fL (7.2-11.1) Neutrophils (%) (Auto) 55.2 % (39.4-72.5) Lymphocytes (%) (Auto) 32.4 % (17.6-49.6) Monocytes (%) (Auto) 7.9 % (4.1-12.4) Eosinophils (%) (Auto) 3.5 % (0.4-6.7) Basophils (%) (Auto) 1.0 % (0.3-1.4) Nucleated RBC Relative Count (auto) 0.0 /100WBC Neutrophils # (Auto) 4.0 K/uL (2.0-7.4) Lymphocytes # (Auto) 2.4 K/uL (1.3-3.6) Monocytes # (Auto) 0.6 K/uL (0.3-1.0) Eosinophils # (Auto) 0.3 K/uL (0.0-0.5) Basophils # (Auto) 0.1 K/uL (0.0-0.1) Nucleated RBC Absolute Count (auto) 0.00 K/uL D-Dimer Quantitative (PE/DVT) < 0.27 ug/ml (0-0.50) Glomerular Filtration Rate Calc > 60.0 Calcium Level 9.5 mg/dl (8.4-10.2) Total Bilirubin 0.4 mg/dl (0.2-1.3) Aspartate Amino Transf (AST/SGOT) 52 U/L (0-35) Alanine Aminotransferase (ALT/SGPT) 64 U/L (0-56) Alkaline Phosphatase 74 U/L (0-126) Troponin I < 0.012 ng/ml B-Type Natriuretic Peptide 13 pg/ml (0-100) Total Protein 8.2 g/dl (6.3-8.2) Albumin 5.0 g/dl (3.5-5.0) Coagulation Test 05/17/18 03:42 D-Dimer Quantitative (PE/DVT) < 0.27 ug/ml EKG/Imaging EKG Interpretation 12 lead EK Rhythm: normal sinus rhythm Lead: normal QRS: normal ST segments: Nonspecific ST and T-wave changes, diffuse T-wave flattening Imaging X-ray: Two-view chest x-ray was obtained. I viewed the images myself on the PACS system. My interpretation of the images is: No infiltrate, no effusion, normal mediastinum. The radiologist interpretation had no clinically significant variation from this interpretation. ED Course/Re-evaluation Clinical Indication for ER IV: IV Access ED Course Patient was minute to an examination room. H&P was done. The differential diagnoses was considered. On clinical examination. Patient's complaining of chest pain. He is no acute distress. There is no diaphoresis. His vitals are stable. An EKG shows no evidence of ischemia. Diagnostic studies are ordered. Patient's medicated with Toradol 30 mg and reevaluation after 45 minutes of observation. He's much improved. His chest x-ray is unremarkable. His diagnostic studies returned unremarkable. He'll be discharged home Decision to Disposition Date: May 17, 2018 Decision to Disposition Time: 04:19 Depart Departure Latest Vital Signs Impression: Primary Impression: Chest pain Additional Impressions: Abdominal cramps Restless leg syndrome Condition: Improved Disposition: HOME OR SELF-CARE Referrals: JC MARTINEZ PA-C (PCP) Patient Instructions: Abdominal Pain (ED), Clear Liquid Diet (ED) Additional Instructions: Follow clear liquid diet for 24-48 hours, then advance to the brat diet, bananas, rice, applesauce and toast Use Tylenol or ibuprofen for pain relief Follow-up with your primary care if unimproved in 3-5 days Problem Qualifiers Primary Impression: Chest pain Chest pain type: unspecified Qualified Codes: R07.9 - Chest pain, unspecified MILLIE CHANCE DO May 17, 2018 04:15
[2018-05-17] MEDS ORDERED: KETOROLAC 30 MG/ML VIAL IVP ONE (04:30)
--- NOTE | 2018-05-17 04:47 | RADIOLOGY IMAGING REPORT ---
FACILITY: [facility] - [place] PATIENT NAME: Omar Zarate : 1955 MR: [id number] V: [id number] EXAM DATE: ORDERING PHYSICIAN: MILLIE CHANCE TECHNOLOGIST: [place] [facility] [place] Omar Zarate : 1955 Visit/Account:[id number] Date of Sevice: 05/17/2018 CHEST: Indication: Chest pain. Technique: Frontal and lateral views were obtained. Comparison: 04/04/2018 Skeletal and soft tissue structures: Intact and unchanged. Heart and mediastinum: Within normal limits. Lung hernandez: Well-expanded and clear. Pleural spaces: Unremarkable. Impression: No acute process and change. Report Dictated By: Vijay Ford MD at 05/17/2018 4:42 AM Report E-Signed By: Vijay Ford MD at 05/17/2018 4:44 AM WSN:[id number]
[2018-05-17 05:00] VITALS: BP 117/82
--- NOTE | 2018-05-17 05:54 | EKG ---
FACILITY: [facility] PATIENT NAME: JOSSY NEVAREZ : [id number] MR: [id number] V: [id number] EXAM DATE: ORDERING PHYSICIAN: MILLIE CHANCE TECHNOLOGIST: KAITY Rosenberg Reason : Blood Pressure : / mmHG Vent. Rate : 062 BPM Atrial Rate : 062 BPM P-R Int : 156 ms QRS Dur : 086 ms QT Int : 416 ms P-R-T Axes : 089 013 038 degrees QTc Int : 422 ms Normal sinus rhythm Nonspecific ST abnormality Abnormal ECG When compared with ECG of 10-JAN-2018 02:19, No significant change was found Confirmed by Ravindra Diaz ([id number]) on 05/17/2018 6:49:32 AM Referred By: Confirmed By:Ravindra Kelsey
== END 2018-05-17 05:00 | disposition home or self-care (01) ==
LOC: ER 03:43
DX: R07.9 Chest pain, unspecified (principal); R07.89 Other chest pain; G25.81 Restless legs syndrome; R94.31 Abnormal electrocardiogram [ECG] [EKG]
CPT/HCPCS: 71046; 83880; 84484; 85025; 85379; 93005; 96374; 99284; J1885; 82040; 82247; 82310; 82374; 82435; 82565; 82947; 84075; 84132; 84155; 84295; 84450; 84460; 84520

== ENCOUNTER → 2018-07-10 | Outpatient (CLI) | payer MEDICARE, BC ==
[2016-06-16 16:58] VITALS: BMI 24.1
== END ==
LOC: RESP 20:02
PROVIDERS: ATTEND Physician Assistant
DX: G47.33 Obstructive sleep apnea (adult) (pediatric) (principal)

== ENCOUNTER → 2018-07-24 | Outpatient (CLI) | payer MEDICARE, BC ==
[2016-06-16 16:58] VITALS: BMI 24.1
== END ==
LOC: RESP 06:43
PROVIDERS: ATTEND Physician Assistant
DX: J98.4 Other disorders of lung (principal)
CPT/HCPCS: 94060; 94729

== ENCOUNTER 2018-11-08 19:18 | Emergency (ER) | payer MEDICARE, BC ==
[2016-06-16 16:58] VITALS: Wt 74.8 kg
[~2018-11-08 19:18] MED LIST changes: -BACL-1 PO; -CEFU500T10 PO; -LEVO88TA43 PO; -MECL25TA27 PO; -ONDA4TAB9 PO; -PARO-243 PO
--- NOTE | 2018-11-08 19:20 | ER Report ---
History and Physical Time Seen By MD: 19:20 HPI/ROS CHIEF COMPLAINT: Anxiety attack HISTORY OF PRESENT ILLNESS: 63-year-old male run in by EMS from home with a panic attack. Patient states she's not feeling well. He has severe nausea. Shortly after arrival. He vomited a large amount of bilious green fluid close to 800 mL. Patient's hyperventilating. Stating he does not feel well. Patient has cognitive impairment and is limited historian. Most of the history is obtained from his who is a nurse. Patient and his admit flulike symptoms for 4-5 days with sinus congestion, rhinitis and a cough. Patient thinks he may be of swallowing significant postnasal drip causing his stomach to be upset REVIEW OF SYSTEMS: Respiratory: As above Cardiovascular: No chest pain, no palpitations. Gastrointestinal: As above Musculoskeletal: No back pain. Allergies: Coded Allergies: No Known Drug Allergies (Unverified , 11/08/18) Home Meds Active Scripts Ondansetron 4 Mg Odt (ONDANSETRON 4 MG ODT) 4 Mg Tab.rapdis, 4 MG PO Q6H PRN for NAUSEA/VOMITING, #12 TAB Prov:MILLIE CHANCE DO 11/08/18 Cefuroxime Axetil (CEFUROXIME) 500 Mg Tablet, 500 MG PO BID for infection, #14 TAB Prov:MILLIE CHANCE DO 11/08/18 Diazepam (DIASTAT ACUDIAL) 1 Each Kit, 1 EACH RC 1-2XD PRN for SEIZURE, #1 KIT Prov:MALIA YANG MD 01/10/18 Reported Medications Paroxetine Hcl (PAXIL) 20 Mg Tablet, 40 MG PO QDAY, TAB 11/08/18 Meclizine Hcl (MECLIZINE HCL) 25 Mg Tab.chew, 25 MG PO BID, TAB.CHEW 11/08/18 Baclofen (BACLOFEN) 10 Mg Tablet, 10 MG PO TID, #30 TAB 11/08/18 Levothyroxine Sodium (SYNTHROID) 88 Mcg Tablet, 88 MCG PO QDAY 11/08/18 Tizanidine Hcl (ZANAFLEX) 2 Mg Capsule, 2 MG PO TID, CAPSULE 01/10/18 Omeprazole (OMEPRAZOLE) 20 Mg Capsule.dr, 1 CAP PO DAILY, CAP 01/10/18 Acetaminophen (TYLENOL) 325 Mg Tablet, 325 MG PO Q6H PRN for PAIN, TAB 01/10/18 Hydroxyzine Pamoate (HYDROXYZINE PAMOATE) 50 Mg Capsule, 50 MG PO DAILY, CAPSULE 03/14/17 Amitriptyline Hcl (AMITRIPTYLINE HCL) 50 Mg Tablet, 50 MG PO QHS, #5 TAB 03/14/17 Multivitamin With Minerals (MEN'S ONE DAILY) 1 Each Tablet, 1 EACH PO DAILY 02/01/15 Discontinued Reported Medications Pramipexole Di-Hcl (PRAMIPEXOLE DIHYDROCHLORIDE) 0.25 Mg Tablet, 1 TAB PO DAILY, #30 05/21/16 Levothyroxine Sodium (SYNTHROID) 25 Mcg Tablet, 50 MCG PO QDAY 11/05/15 Discontinued Scripts Mag Hydrox/Aluminum Hyd/Simeth (Maalox Advanced Suspension) 200 Mg-200 Mg-20 Mg/5 Ml Oral.susp, 5 ML PO Q6H for throat discomfort, #120 ML 0 Refills Prov:PATY HOOVER MD 04/04/18 Levetiracetam (KEPPRA) 500 Mg Tablet, 500 MG PO BID, #60 TAB Prov:VIKASH DIXON 01/13/18 Past Medical/Surgical History Patient has a past medical history of TBI, angina, left knee injury, alcohol abuse, anxiety. Patient has no pertinent surgical history. Reviewed Nurses Notes: Yes Old Medical Records Reviewed: Yes Hx Smoking: No Smoking Status: Never Smoker Exposure to Second Hand Smoke?: No Hx Substance Use Disorder: No Hx Alcohol Use: Yes (quit long time ago) Constitutional Vital Sign - Last 24 Hours 11/08/18 11/08/18 11/08/18 11/08/18 19:18 19:20 19:30 19:45 Temp 98.0 Pulse 96 99 Resp 17 19 B/P (MAP) 147/95 164/158 (160) 134/123 (127) Pulse Ox 96 98 O2 Delivery Room Air 11/08/18 11/08/18 11/08/18 11/08/18 19:48 20:00 20:05 20:15 Pulse 72 70 Resp 41 15 B/P (MAP) 119/73 (88) 127/76 (93) 11/08/18 11/08/18 11/08/18 11/08/18 20:30 20:35 20:45 21:00 Pulse 80 Resp 17 B/P (MAP) 131/80 (97) 116/76 (89) 118/74 (89) Physical Exam Vital signs stable, afebrile, pulse ox normal General Appearance: The patient is alert, has no immediate need for airway protection and no current signs of toxicity. Uncomfortable, agitated HEENT: Pupils equal and round no injection. Oropharynx with mild erythema, no exudate Respiratory: Chest is non tender, lungs are clear to auscultation. Cardiac: regular rate and rhythm Gastrointestinal: Abdomen is soft and non tender, no masses, bowel sounds normal. Musculoskeletal: Neck: Neck is supple and non tender. Extremities have full range of motion and are non tender. Skin: No rashes or lesions. DIFFERENTIAL DIAGNOSIS: After history and physical exam differential diagnosis was considered for abdominal pain including but not limited to appendicitis, cholecystitis, gastritis and urinary tract infection. Additionally, chest pain including but not limited to myocardial ischemia, pericarditis pulmonary embolus, chest wall pain, pleural inflammation and pulmonary infectious causes. Medical Decision Making Data Points Result Diagram: 11/08/18193411/08/181934 Laboratory Hematology Test 11/08/18 19:35 11/08/18 20:03 Red Blood Count 6.29 M/uL (4.00-5.60) Mean Corpuscular Volume 88.3 fL (80.0-96.0) Mean Corpuscular Hemoglobin 29.8 pg (26.0-33.0) Mean Corpuscular Hemoglobin Concent 33.7 g/dL (32.0-36.0) Red Cell Distribution Width 13.8 % (11.5-14.5) Mean Platelet Volume 7.1 fL (7.2-11.1) Neutrophils (%) (Auto) 90.4 % (39.4-72.5) Lymphocytes (%) (Auto) 4.9 % (17.6-49.6) Monocytes (%) (Auto) 3.4 % (4.1-12.4) Eosinophils (%) (Auto) 1.0 % (0.4-6.7) Basophils (%) (Auto) 0.3 % (0.3-1.4) Nucleated RBC Relative Count (auto) 0.0 /100WBC Neutrophils # (Auto) 9.5 K/uL (2.0-7.4) Lymphocytes # (Auto) 0.5 K/uL (1.3-3.6) Monocytes # (Auto) 0.4 K/uL (0.3-1.0) Eosinophils # (Auto) 0.1 K/uL (0.0-0.5) Basophils # (Auto) 0.0 K/uL (0.0-0.1) Nucleated RBC Absolute Count (auto) 0.00 K/uL Sodium Level 141 mmol/L (137-145) Potassium Level 4.2 mmol/L (3.5-5.0) Chloride Level 107 mmol/L (98-107) Carbon Dioxide Level 21 mmol/L (22-30) Blood Urea Nitrogen 25 mg/dl (9-21) Creatinine 1.20 mg/dl (0.66-1.25) Glomerular Filtration Rate Calc > 60.0 Random Glucose 120 mg/dl (75-110) Calcium Level 9.7 mg/dl (8.4-10.2) Total Bilirubin 1.6 mg/dl (0.2-1.3) Aspartate Amino Transf (AST/SGOT) 43 U/L (0-35) Alanine Aminotransferase (ALT/SGPT) 59 U/L (0-56) Alkaline Phosphatase 90 U/L (0-126) Troponin I < 0.012 ng/ml Total Protein 8.6 g/dl (6.3-8.2) Albumin 5.3 g/dl (3.5-5.0) Amylase Level 80 U/L (0-110) Lipase 115 U/L (23-300) Influenza Virus Type A (PCR) Negative (NEGATIVE) Influenza Virus Type B (PCR) Negative (NEGATIVE) Chemistry Test 11/08/18 19:35 11/08/18 20:03 White Blood Count 10.5 k/uL (4.5-11.0) Red Blood Count 6.29 M/uL (4.00-5.60) Hemoglobin 18.7 g/dL (14.0-18.0) Hematocrit 55.5 % (42.0-52.0) Mean Corpuscular Volume 88.3 fL (80.0-96.0) Mean Corpuscular Hemoglobin 29.8 pg (26.0-33.0) Mean Corpuscular Hemoglobin Concent 33.7 g/dL (32.0-36.0) Red Cell Distribution Width 13.8 % (11.5-14.5) Platelet Count 292 K/uL (150-450) Mean Platelet Volume 7.1 fL (7.2-11.1) Neutrophils (%) (Auto) 90.4 % (39.4-72.5) Lymphocytes (%) (Auto) 4.9 % (17.6-49.6) Monocytes (%) (Auto) 3.4 % (4.1-12.4) Eosinophils (%) (Auto) 1.0 % (0.4-6.7) Basophils (%) (Auto) 0.3 % (0.3-1.4) Nucleated RBC Relative Count (auto) 0.0 /100WBC Neutrophils # (Auto) 9.5 K/uL (2.0-7.4) Lymphocytes # (Auto) 0.5 K/uL (1.3-3.6) Monocytes # (Auto) 0.4 K/uL (0.3-1.0) Eosinophils # (Auto) 0.1 K/uL (0.0-0.5) Basophils # (Auto) 0.0 K/uL (0.0-0.1) Nucleated RBC Absolute Count (auto) 0.00 K/uL Glomerular Filtration Rate Calc > 60.0 Calcium Level 9.7 mg/dl (8.4-10.2) Total Bilirubin 1.6 mg/dl (0.2-1.3) Aspartate Amino Transf (AST/SGOT) 43 U/L (0-35) Alanine Aminotransferase (ALT/SGPT) 59 U/L (0-56) Alkaline Phosphatase 90 U/L (0-126) Troponin I < 0.012 ng/ml Total Protein 8.6 g/dl (6.3-8.2) Albumin 5.3 g/dl (3.5-5.0) Amylase Level 80 U/L (0-110) Lipase 115 U/L (23-300) Influenza Virus Type A (PCR) Negative (NEGATIVE) Influenza Virus Type B (PCR) Negative (NEGATIVE) EKG/Imaging EKG Interpretation 12 lead EK Rhythm: normal sinus rhythm Renovo: normal QRS: normal, QT prolongation to [address] segments: Diffuse T-wave flattening. Compared to previous EKG dated 05/17/18 Imaging X-ray: Single view portable chest x-ray was obtained. I viewed the images myself on the PACS system. My interpretation of the images is: No infiltrate, hyperinflated lung hernandez, normal mediastinum, no change compared to previous chest x-ray 04/04/18. The radiologist interpretation had no clinically significant variation from this interpretation. ED Course/Re-evaluation Clinical Indication for ER IV: Hydration, IV Access ED Course Patient was admitted to an examination room. H&P was done. The differential diagnoses was considered. On clinical examination. Patient has a benign nonsurgical abdomen. He is complaining of abdominal pain and not feeling well. He vomited shortly after arrival copious amounts of green bilious food fluid matter. Patient was treated with IV Zofran and fentanyl. On reevaluation is feeling much better. His diagnostic studies EKG and laboratory studies are unremarkable for any serious pathology. Patient reports feeling much better. He'll be discharged home on Zofran. Advised a clear liquid diet for 24-48 hours. A single view chest x-ray is unremarkable for infiltrate. Patient be treated for sinus infection with antibiotics. He is advised to follow-up with primary care if unimproved in 3-5 days. Decision to Disposition Date: Nov 08, 2018 Decision to Disposition Time: 20:56 Depart Departure Latest Vital Signs Vital Signs Date Time Temp Pulse Resp B/P (MAP) Pulse Ox O2 Delivery O2 Flow Rate FiO2 11/08/18 21:00 118/74 (89) 11/08/18 20:35 80 17 11/08/18 19:20 98.0 98 Room Air Impression: Primary Impression: Upper respiratory infection Additional Impression: Vomiting Condition: Improved Disposition: HOME OR SELF-CARE Referrals: JC MARTINEZ PA-C (PCP) New Scripts Ondansetron 4 Mg Odt (ONDANSETRON 4 MG ODT) 4 Mg Tab.rapdis 4 MG PO Q6H PRN for NAUSEA/VOMITING, #12 TAB Prov: MILLIE CHANCE DO 11/08/18 Cefuroxime Axetil (CEFUROXIME) 500 Mg Tablet 500 MG PO BID for infection, #14 TAB Prov: MILLIE CHANCE DO 11/08/18 Patient Instructions: Acute Nausea and Vomiting (ED), Sinusitis (ED) Additional Instructions: Follow-up with your primary care if unimproved in 2-3 days Problem Qualifiers Primary Impression: Upper respiratory infection URI type: unspecified URI Qualified Codes: J06.9 - Acute upper respiratory infection, unspecified Additional Impression: Vomiting Vomiting type: unspecified Vomiting Intractability: unspecified Nausea presence: with nausea Qualified Codes: R11.2 - Nausea with vomiting, unspecified MILLIE CHANCE DO Nov 08, 2018 19:20
[2018-11-08] MEDS ORDERED: NS(*) 0.9% 1000 ML BAG 1,000 ML IV ONE (19:23)
[2018-11-08] MEDS ORDERED: ONDANSETRON 4 MG/2 ML VIAL IVP ONE (19:25)
[2018-11-08] MEDS ORDERED: fentaNYL CITR 100 MCG/2 ML AMP IVP ONE (19:25)
[2018-11-08 19:49] LABS: PLATELET COUNT, AUTOMATED 292 K/uL (150-450)
[2018-11-08] MEDS ORDERED: LEVO88TA43 PO (20:28)
[2018-11-08] MEDS ORDERED: PARO-243 PO (20:28)
[2018-11-08] MEDS ORDERED: BACL-1 PO (20:28)
[2018-11-08] MEDS ORDERED: MECL25TA27 PO (20:28)
[2018-11-08 21:00] VITALS: BP 118/74
--- NOTE | 2018-11-08 21:00 | RADIOLOGY IMAGING REPORT ---
FACILITY: [facility] [place] PATIENT NAME: Omar Zarate : 1955 MR: [id number] V: [id number] EXAM DATE: ORDERING PHYSICIAN: MILLIE CHANCE TECHNOLOGIST: Location: [facility] Patient: Omar Zarate : 1955 Visit/Account:[id number] Date of Sevice: 11/08/2018 Study: Single portable view of the chest. Indication: Flu symptoms Comparison study: May 17, 2018 Technique: Single AP view of the chest demonstrates no evidence of acute infiltrate. There is no evid ence of pleural effusion or pneumothorax. The mediastinal, cardiac, and diaphragmatic contours are un remarkable. IMPRESSION: Unremarkable chest. Report Dictated By: Danny Friedman at 11/08/2018 8:56 PM Report E-Signed By: Danny Friedman at 11/08/2018 8:57 PM WSN:[id number]
[2018-11-08] MEDS ORDERED: CEFU500T10 PO (21:01)
[2018-11-08] MEDS ORDERED: ONDA4TAB9 PO (21:02)
[2018-11-08] MEDS ORDERED: CEFUROXIME AXETIL 250 MG TAB PO ONE (21:05)
[2018-11-08] MEDS ORDERED: ONDANSETRON 4 MG ODT TH SL ONE (21:05)
--- NOTE | 2018-11-08 22:37 | EKG ---
FACILITY: [facility] - [place] PATIENT NAME: JOSSY NEVAREZ : [id number] MR: [id number] V: [id number] EXAM DATE: ORDERING PHYSICIAN: MILLIE CHANCE TECHNOLOGIST: RIC Test Reason : DYSPNEA Blood Pressure : / mmHG Vent. Rate : 090 BPM Atrial Rate : 090 BPM P-R Int : 140 ms QRS Dur : 080 ms QT Int : 380 ms P-R-T Axes : 077 055 058 degrees QTc Int : 464 ms Normal sinus rhythm Nonspecific T wave abnormality Prolonged QT Abnormal ECG When compared with ECG of 17-MAY-2018 03:58, No significant change was found Confirmed by Ravindra Diaz ([id number]) on 11/09/2018 7:24:11 AM Referred By: Confirmed By:Ravindra Kelsey
== END 2018-11-08 21:21 | disposition home or self-care (01) ==
LOC: ER 19:21
DX: J06.9 Acute upper respiratory infection, unspecified (principal); R11.2 Nausea with vomiting, unspecified; R06.00 Dyspnea, unspecified; R06.4 Hyperventilation; Z87.820 Personal history of traumatic brain injury
CPT/HCPCS: 71045; 82150; 83690; 84484; 85025; 87502; 93005; 96361; 96374; 96375; 99284; A9270; J2405; J3010; J7030; Q0162; 82040; 82247; 82310; 82374; 82435; 82565; 82947; 84075; 84132; 84155; 84295; 84450; 84460; 84520; S0119

== ENCOUNTER → 2018-11-08 | Outpatient (CLI) | payer MEDICARE, BC ==
[2016-06-16 16:58] VITALS: BMI 24.1
[~2018-11-08] MED LIST changes: +BACL-1 PO; +CEFU500T10 PO; +LEVO88TA43 PO; +MECL25TA27 PO; +ONDA4TAB9 PO; +PARO-243 PO
== END ==
LOC: AMB 18:51
PROVIDERS: ATTEND Nurse Practitioner
DX: R06.4 Hyperventilation (principal); F41.9 Anxiety disorder, unspecified
CPT/HCPCS: A0425; A0427

== ENCOUNTER 2019-01-21 16:23 | Emergency (ER) | payer MEDICARE, BC ==
[2016-06-16 16:58] VITALS: Wt 74.9 kg
[~2019-01-21 16:23] MED LIST changes: +BACL-1 PO; +CEFU500T10 PO; +CIDE300T4 PO; +IBUP-136 PO; +IRON1TAB10 PO; +L.AC1CAP6; +LEVO88TA43 PO; +MECL25TA27 PO; +OMEG-24 PO; +ONDA4TAB9 PO; +PARO-243 PO; +PRAM2.252; +TRAM-420 PO; +TRAZ50TA34 PO; +ZONI100C49 PO
--- NOTE | 2019-01-21 16:33 | ER Report ---
History and Physical Time Seen By MD: 16:33 Hx. of Stated Complaint: CHEST PAIN HPI/ROS Intermittent chest pain often. Has been worked up for this previously. Today was getting pulmonary function tests when he told staff he had chest pain, and was subsequently sent to the emergency department. Vision states this is his usual chest pain. Not new. No worsening SOB. No other complaints. Remainder of the 14 system rev: Yes Allergies: Coded Allergies: levetiracetam (Verified Allergy, Unknown, 01/21/19) Home Meds Active Scripts Albuterol Sulfate 90 Mcg/Act (PROAIR HFA 90 MCG/ACT) 8.5 Gm Hfa.aer.ad, 1-2 PUFF IH 2-4XD for 30 Days, #1 INHALER 1 Refill Prov:BENJAMIN MURILLO PA-C 01/21/19 Methylprednisolone (METHYLPREDNISOLONE) 4 Mg Tab.ds.pk, 4 MG PO DIRECTED for 6 Days, #1 PACK Prov:BENJAMIN MURILLO PA-C 01/21/19 Cefprozil (CEFPROZIL) 500 Mg Tab, 500 MG PO BID for 14 Days, #28 TAB Prov:BENJAMIN MURILLO PA-C 01/21/19 Diazepam (DIASTAT ACUDIAL) 1 Each Kit, 1 EACH RC 1-2XD PRN for SEIZURE, #1 KIT Prov:MALIA YANG MD 01/10/18 Reported Medications Iron,Carbonyl/Vit C/Vit B12/Fa (IRON 100 PLUS TABLET) Unknown Strength Tablet, PO 01/01/19 Cider Vinegar (APPLE CIDER VINEGAR) Unknown Strength Tablet, PO 01/01/19 [place]-3 Fatty Acids/Fish Oil (FISH OIL 1,200 MG SOFTGEL) 1 Each Capsule, 1 EACH PO, CAPSULE 01/01/19 Ibuprofen (IBUPROFEN) 200 Mg Capsule, 1 CAP PO Q6H, CAPSULE 01/01/19 Tramadol Hcl (TRAMADOL HCL) 50 Mg Tablet, 50 MG PO Q4-6H, TAB 01/01/19 Trazodone Hcl (TRAZODONE HCL) 50 Mg Tablet, 50 MG PO QHS 01/01/19 Zonisamide (ZONISAMIDE) 100 Mg Capsule, 100 MG PO, CAPSULE 01/01/19 Pramipexole Di-HCl (Pramipexole ER) 2.25 Mg Tab.er.24h 01/01/19 L.acidoph & Paracasei,B.lactis (Probiotic) 1 Each Capsule 01/01/19 Paroxetine Hcl (PAXIL) 20 Mg Tablet, 40 MG PO QDAY, TAB 11/08/18 Meclizine Hcl (MECLIZINE HCL) 25 Mg Tab.chew, 25 MG PO BID, TAB.CHEW 11/08/18 Baclofen (BACLOFEN) 10 Mg Tablet, 10 MG PO TID, #30 TAB 11/08/18 Levothyroxine Sodium (SYNTHROID) 88 Mcg Tablet, 88 MCG PO QDAY 11/08/18 Tizanidine Hcl (ZANAFLEX) 2 Mg Capsule, 2 MG PO TID, CAPSULE 01/10/18 Acetaminophen (TYLENOL) 325 Mg Tablet, 325 MG PO Q6H PRN for PAIN, TAB 01/10/18 Hydroxyzine Pamoate (HYDROXYZINE PAMOATE) 50 Mg Capsule, 50 MG PO DAILY, CAPSULE 03/14/17 Multivitamin With Minerals (MEN'S ONE DAILY) 1 Each Tablet, 1 EACH PO DAILY 02/01/15 Hx Smoking: No Smoking Status: Never Smoker Exposure to Second Hand Smoke?: No Hx Substance Use Disorder: No Hx Alcohol Use: Yes (quit long time ago) Constitutional Vital Sign - Last 24 Hours 01/21/19 01/21/19 01/21/19 01/21/19 16:27 16:30 17:00 17:30 Temp 97.5 Pulse 60 60 63 58 Resp 20 13 26 14 B/P (MAP) 112/75 112/75 (87) 103/97 (99) 114/80 (91) Pulse Ox 93 92 93 93 O2 Delivery Room Air 01/21/19 01/21/19 18:00 18:30 Pulse 56 55 Resp 22 14 B/P (MAP) 109/81 (90) 124/80 (95) Pulse Ox 92 91 Physical Exam General Appearance: The patient is alert, has no immediate need for airway protection and no current signs of toxicity. Eyes: Pupils equal and round no injection. Respiratory: Chest is non tender, lungs are clear to auscultation. Cardiac: regular rate and rhythm Gastrointestinal: Abdomen is soft and non tender, no masses, bowel sounds normal. Skin: No rashes or lesions. DIFFERENTIAL DIAGNOSIS: After history and physical exam differential diagnosis was considered for chest pain including but not limited to myocardial ischemia, pericarditis pulmonary embolus, chest wall pain, pleural inflammation and pulmonary infectious causes. Medical Decision Making Data Points Result Diagram: 01/21/19 1432 01/21/19 1432 Laboratory Hematology Test 01/21/19 14:32 01/21/19 18:55 Red Blood Count 5.33 M/uL (4.00-5.60) Mean Corpuscular Volume 88.1 fL (80.0-96.0) Mean Corpuscular Hemoglobin 29.6 pg (26.0-33.0) Mean Corpuscular Hemoglobin Concent 33.6 g/dL (32.0-36.0) Red Cell Distribution Width 13.8 % (11.5-14.5) Mean Platelet Volume 7.1 fL (7.2-11.1) Neutrophils (%) (Auto) 63.0 % (39.4-72.5) Lymphocytes (%) (Auto) 25.6 % (17.6-49.6) Monocytes (%) (Auto) 6.8 % (4.1-12.4) Eosinophils (%) (Auto) 3.7 % (0.4-6.7) Basophils (%) (Auto) 0.9 % (0.3-1.4) Nucleated RBC Relative Count (auto) 0.1 /100WBC Neutrophils # (Auto) 3.5 K/uL (2.0-7.4) Lymphocytes # (Auto) 1.4 K/uL (1.3-3.6) Monocytes # (Auto) 0.4 K/uL (0.3-1.0) Eosinophils # (Auto) 0.2 K/uL (0.0-0.5) Basophils # (Auto) 0.1 K/uL (0.0-0.1) Nucleated RBC Absolute Count (auto) 0.00 K/uL D-Dimer Quantitative (PE/DVT) < 0.27 ug/ml (0-0.50) Sodium Level 141 mmol/L (137-145) Potassium Level 4.0 mmol/L (3.5-5.0) Chloride Level 109 mmol/L (98-107) Carbon Dioxide Level 23 mmol/L (22-30) Blood Urea Nitrogen 21 mg/dl (9-21) Creatinine 1.00 mg/dl (0.66-1.25) Glomerular Filtration Rate Calc > 60.0 Random Glucose 112 mg/dl (75-110) Calcium Level 9.2 mg/dl (8.4-10.2) Total Bilirubin 0.4 mg/dl (0.2-1.3) Aspartate Amino Transf (AST/SGOT) 40 U/L (0-35) Alanine Aminotransferase (ALT/SGPT) 42 U/L (0-56) Alkaline Phosphatase 68 U/L (0-126) Total Protein 7.1 g/dl (6.3-8.2) Albumin 4.3 g/dl (3.5-5.0) Troponin I < 0.012 ng/ml Chemistry Test 01/21/19 14:32 01/21/19 18:55 White Blood Count 5.5 k/uL (4.5-11.0) Red Blood Count 5.33 M/uL (4.00-5.60) Hemoglobin 15.8 g/dL (14.0-18.0) Hematocrit 47.0 % (42.0-52.0) Mean Corpuscular Volume 88.1 fL (80.0-96.0) Mean Corpuscular Hemoglobin 29.6 pg (26.0-33.0) Mean Corpuscular Hemoglobin Concent 33.6 g/dL (32.0-36.0) Red Cell Distribution Width 13.8 % (11.5-14.5) Platelet Count 261 K/uL (150-450) Mean Platelet Volume 7.1 fL (7.2-11.1) Neutrophils (%) (Auto) 63.0 % (39.4-72.5) Lymphocytes (%) (Auto) 25.6 % (17.6-49.6) Monocytes (%) (Auto) 6.8 % (4.1-12.4) Eosinophils (%) (Auto) 3.7 % (0.4-6.7) Basophils (%) (Auto) 0.9 % (0.3-1.4) Nucleated RBC Relative Count (auto) 0.1 /100WBC Neutrophils # (Auto) 3.5 K/uL (2.0-7.4) Lymphocytes # (Auto) 1.4 K/uL (1.3-3.6) Monocytes # (Auto) 0.4 K/uL (0.3-1.0) Eosinophils # (Auto) 0.2 K/uL (0.0-0.5) Basophils # (Auto) 0.1 K/uL (0.0-0.1) Nucleated RBC Absolute Count (auto) 0.00 K/uL D-Dimer Quantitative (PE/DVT) < 0.27 ug/ml (0-0.50) Glomerular Filtration Rate Calc > 60.0 Calcium Level 9.2 mg/dl (8.4-10.2) Total Bilirubin 0.4 mg/dl (0.2-1.3) Aspartate Amino Transf (AST/SGOT) 40 U/L (0-35) Alanine Aminotransferase (ALT/SGPT) 42 U/L (0-56) Alkaline Phosphatase 68 U/L (0-126) Total Protein 7.1 g/dl (6.3-8.2) Albumin 4.3 g/dl (3.5-5.0) Troponin I < 0.012 ng/ml Coagulation Test 01/21/19 14:32 D-Dimer Quantitative (PE/DVT) < 0.27 ug/ml EKG/Imaging Imaging 12 lead EKG: Rhythm: normal sinus rhythm [place]: undetermined QRS: early RBBB ST segments: consistent with RBBB ED Course/Re-evaluation ED Course Patient appears well. No shortness of breath or diaphoresis. He denies chest pain currently. Intermittent chest pain for weeks to months, but was sent to the ED when he told staff at the pulmonary clinic he is having chest pain. EKG shows a developing right bundle branch block compared to EKG from October. The EKG, however is not concerning for acute ischemia. 2 troponins obtained 3 hours apart after multiple days of chest pain are both normal. Do not think that this is ACS. D-dimer is negative, and low suspicion for a PE. I will peer counselor the patient to follow-up with his primary provider, and discuss an outpatient stress test in the next 1-2 weeks. Decision to Disposition Date: January 21, 2019 Decision to Disposition Time: 19:33 Depart Departure Latest Vital Signs Vital Signs Date Time Temp Pulse Resp B/P (MAP) Pulse Ox O2 Delivery O2 Flow Rate FiO2 01/21/19 18:30 55 14 124/80 (95) 91 01/21/19 16:27 97.5 Room Air Impression: Primary Impression: Chest pain Condition: Improved Disposition: HOME OR SELF-CARE Referrals: JC MARTINEZ PA-C (PCP) Patient Instructions: Chest Pain (ED) Additional Instructions: Talk with your primary provider about getting an outpt. stress test in the next 1-2 weeks. Problem Qualifiers Primary Impression: Chest pain Chest pain type: other chest pain Qualified Codes: R07.89 - Other chest pain TU SANDRA MD January 21, 2019 16:33
[2019-01-21 17:09] LABS: PLATELET COUNT, AUTOMATED 261 K/uL (150-450)
[2019-01-21] MEDS ORDERED: ALBU8.5H IH (17:28)
[2019-01-21] MEDS ORDERED: METH4TAB66 PO (17:28)
[2019-01-21] MEDS ORDERED: CEFPR500PT PO (17:28)
--- NOTE | 2019-01-21 18:12 | RADIOLOGY IMAGING REPORT ---
FACILITY: [facility] - [place] PATIENT NAME: Omar Zarate : 1955 MR: [id number] V: [id number] EXAM DATE: ORDERING PHYSICIAN: TU SANDRA TECHNOLOGIST: Location: [facility] - [place] Patient: Omar Zarate : 1955 Visit/Account:[id number] Date of Sevice: 01/21/2019 EXAMINATION: PA and Lateral Chest 01/21/2019 4:51 PM HISTORY: CHEST PAIN COMPARISON: 11/08/2018 FINDINGS: Cardiomediastinal contours: Normal Lungs and pleura: Normal Bones/soft tissues: Normal IMPRESSION: No acute cardiopulmonary abnormality. Report Dictated By: Jairon Pham MD at 01/21/2019 6:07 PM Report E-Signed By: Jairon Pham MD at 01/21/2019 6:08 PM [id number]
[2019-01-21 19:30] VITALS: BP 128/79
--- NOTE | 2019-01-21 19:54 | EKG ---
FACILITY: [facility] [place] PATIENT NAME: JOSSY NEVAREZ : [id number] MR: [id number] V: [id number] EXAM DATE: ORDERING PHYSICIAN: TU SANDRA TECHNOLOGIST: ARGENIS Rosenberg Reason : SOB Blood Pressure : / mmHG Vent. Rate : 056 BPM Atrial Rate : 056 BPM P-R Int : 160 ms QRS Dur : 086 ms QT Int : 428 ms P-R-T Axes : 048 010 039 degrees QTc Int : 413 ms Sinus bradycardia Nonspecific T wave abnormality U waves present Abnormal ECG No previous ECGs available Confirmed by JAIDEN VELEZ ([id number]) on 01/21/2019 10:44:39 PM Referred By: ER Confirmed By:JAIDEN VELEZ
--- NOTE | 2019-01-21 19:54 | EKG ---
FACILITY: [facility] - [place] PATIENT NAME: JOSSY NEVAREZ : [id number] MR: [id number] V: [id number] EXAM DATE: ORDERING PHYSICIAN: TU SANDRA TECHNOLOGIST: CASIMIRO Rosenberg Reason : REPEAT EKG Blood Pressure : / mmHG Vent. Rate : 049 BPM Atrial Rate : 049 BPM P-R Int : 166 ms QRS Dur : 086 ms QT Int : 446 ms P-R-T Axes : 061 041 049 degrees QTc Int : 402 ms Sinus bradycardia Nonspecific T wave flattening U waves present Abnormal ECG When compared with ECG of 21-JAN-2019 16:34, No significant change was found Confirmed by JAIDEN VELEZ ([id number]) on 01/21/2019 10:45:54 PM Referred By: Confirmed By:JAIDEN VELEZ
== END 2019-01-21 20:04 | disposition home or self-care (01) ==
LOC: ER 16:46
DX: R07.89 Other chest pain (principal)
CPT/HCPCS: 71046; 82040; 82247; 82310; 82374; 82435; 82565; 82947; 84075; 84132; 84155; 84295; 84450; 84460; 84484; 84520; 85025; 85379; 93005; 99284

== ENCOUNTER 2019-03-07 00:12 | Emergency (ER) | payer MEDICARE, BC ==
[2016-06-16 16:58] VITALS: Wt 77.1 kg
[~2019-03-07 00:12] MED LIST changes: +ALBU8.5H IH; +CEFPR500PT PO; +CLIN300C99 PO; +CLON-388 PO; +METH4TAB66 PO; -OMEP-125 PO; +OMEP-126 PO; +PARO25TA PO; -PRAM2.252; +PRAM2.252 PO; +RISP1TAB79 PO; -TRAZ50TA34 PO; +TRAZ50TA52 PO; +[UNRECOGNIZED DRUG - REMARK] PO
--- NOTE | 2019-03-07 00:28 | ER Report ---
History and Physical Time Seen By MD: 00:26 HPI/ROS CHIEF COMPLAINT: Anxiety, restless legs HISTORY OF PRESENT ILLNESS: 63-year-old male brought in by a friend concerns over his restless legs. He's not been sleeping. She has a long history of developmental delay and mental health issues. He was recently seen a few days ago and had Resporal 1 mg at bedtime and clonazepam 0.5 mg added twice a day as needed. They do not seem to be helping. Patient sees Colleen Sanchez, REVIEW OF SYSTEMS: Respiratory: No cough, no dyspnea. Cardiovascular: No chest pain, no palpitations. Gastrointestinal: No vomiting, no abdominal pain. Musculoskeletal: No back pain. Allergies: Coded Allergies: levetiracetam (Verified Allergy, Unknown, 03/07/19) Home Meds Active Scripts Albuterol Sulfate 90 Mcg/Act (PROAIR HFA 90 MCG/ACT) 8.5 Gm Hfa.aer.ad, 1-2 PUFF IH 2-4XD for 30 Days, #1 INHALER 1 Refill Prov:BENJAMIN MURILLO PA-C 01/21/19 Reported Medications Risperidone (RISPERIDONE) 1 Mg Tablet, 1 MG PO QHS 03/06/19 Clonazepam (CLONAZEPAM) 0.5 Mg Tab.rapdis, 0.5 MG PO BID, #6 TAB 03/06/19 Omeprazole (OMEPRAZOLE) 20 Mg Capsule.dr, 1 CAP PO, CAP 02/04/19 [Energy Pill] No Conflict Check, 1 TAB PO BID 02/04/19 Paroxetine Hcl (PAXIL CR) 25 Mg Tab.er.24h, 50 MG PO QDAY 02/04/19 Iron,Carbonyl/Vit C/Vit B12/Fa (IRON 100 PLUS TABLET) Unknown Strength Tablet, PO 01/01/19 Cider Vinegar (APPLE CIDER VINEGAR) Unknown Strength Tablet, PO 01/01/19 [place]-3 Fatty Acids/Fish Oil (FISH OIL 1,200 MG SOFTGEL) 1 Each Capsule, 1 EACH PO BID, CAPSULE 01/01/19 Ibuprofen (IBUPROFEN) 200 Mg Capsule, 1 CAP PO Q6H, CAPSULE 01/01/19 Tramadol Hcl (TRAMADOL HCL) 50 Mg Tablet, 50 MG PO Q4-6H PRN for PAIN, TAB 01/01/19 Zonisamide (ZONISAMIDE) 100 Mg Capsule, 300 MG PO QHS, CAPSULE 01/01/19 Pramipexole Di-HCl (Pramipexole ER) 2.25 Mg Tab.er.24h, 1 TAB PO DAILY 01/01/19 L.acidoph & Paracasei,B.lactis (Probiotic) 1 Each Capsule 01/01/19 Meclizine Hcl (MECLIZINE HCL) 25 Mg Tab.chew, 25 MG PO BID PRN for DIZZINESS, TAB.CHEW 11/08/18 Baclofen (BACLOFEN) 10 Mg Tablet, 10 MG PO TID PRN for HICCUPS, #30 TAB 11/08/18 Levothyroxine Sodium (SYNTHROID) 88 Mcg Tablet, 88 MCG PO QDAY 11/08/18 Tizanidine Hcl (ZANAFLEX) 2 Mg Capsule, 2 MG PO QHS PRN for PRN, CAPSULE 01/10/18 Acetaminophen (TYLENOL) 325 Mg Tablet, 325 MG PO Q6H PRN for PAIN, TAB 01/10/18 Hydroxyzine Pamoate (HYDROXYZINE PAMOATE) 50 Mg Capsule, 50 MG PO TID, CAPSULE 03/14/17 Multivitamin With Minerals (MEN'S ONE DAILY) 1 Each Tablet, 1 EACH PO DAILY 02/01/15 Discontinued Reported Medications Trazodone Hcl (TRAZODONE HCL) 50 Mg Tablet, 150 MG PO QHS 01/01/19 Discontinued Scripts Clindamycin Hcl (CLINDAMYCIN HCL) 300 Mg Capsule, 300 MG PO TID for 10 Days, #30 CAPSULE 0 Refills Prov:BENJAMIN MURILLO PA-C 02/04/19 Cefprozil (CEFPROZIL) 500 Mg Tab, 500 MG PO BID for 14 Days, #28 TAB Prov:BENJAMIN MURILLO PA-C 01/21/19 Past Medical/Surgical History Past Medical History Neurologic: Reports hx of: developmental delay seizures Respiratory: Reports hx of: asthma sleep apnea Gastrointestinal: Reports hx of: GERD peptic ulcer disease Psychiatric: Reports hx of: anxiety depression Endocrine: Reports hx of: hypothyroidism Reviewed Nurses Notes: Yes Old Medical Records Reviewed: Yes Hx Smoking: No Smoking Status: Never Smoker Exposure to Second Hand Smoke?: No Hx Substance Use Disorder: No Hx Alcohol Use: Yes (quit long time ago) Constitutional Vital Sign - Last 24 Hours 6/2103/07/19 03/07/19 03/07/19 00:12 00:16 00:26 00:30 Temp 97.7 Pulse ??? 71 Resp 15 B/P (MAP) 123/76 (92) 123/76 98/67 (77) Pulse Ox 92 O2 Delivery Room Air 03/07/19 03/07/19 03/07/19 00:42 01:00 01:12 Pulse 60 67 B/P (MAP) 89/74 (79) Pulse Ox 90 94 Physical Exam General Appearance: The patient is alert, has no immediate need for airway pr otection and no current signs of toxicity. No acute distress, vital signs stable, afebrile, pulse ox normal HEENT: Pupils equal and round no injection. Oropharynx without redness or exudate, mucous. Membranes are moist Respiratory: Chest is non tender, lungs are clear to auscultation. Cardiac: regular rate and rhythm Gastrointestinal: Abdomen is soft and non tender, no masses, bowel sounds norm al. Musculoskeletal: Neck: Neck is supple and non tender. Extremities have full range of motion and are non tender., There is no twitching or abnormal movements of the lower extremities. Skin: No rashes or lesions. DIFFERENTIAL DIAGNOSIS: After history and physical exam differential diagnosis was considered for depression including functional and major depression, situational depression, medication side effect, drugs and alcohol abuse. Medical Decision Making Data Points Result Diagram: 03/07/19 0053 03/07/19 005 Laboratory Hematology Test 03/07/19 00:53 Red Blood Count 5.38 M/uL (4.00-5.60) Mean Corpuscular Volume 87.9 fL (80.0-96.0) Mean Corpuscular Hemoglobin 29.8 pg (26.0-33.0) Mean Corpuscular Hemoglobin Concent 33.9 g/dL (32.0-36.0) Red Cell Distribution Width 14.0 % (11.5-14.5) Mean Platelet Volume 6.8 fL (7.2-11.1) Neutrophils (%) (Auto) 59.8 % (39.4-72.5) Lymphocytes (%) (Auto) 29.1 % (17.6-49.6) Monocytes (%) (Auto) 8.0 % (4.1-12.4) Eosinophils (%) (Auto) 2.2 % (0.4-6.7) Basophils (%) (Auto) 0.9 % (0.3-1.4) Nucleated RBC Relative Count (auto) 0.0 /100WBC Neutrophils # (Auto) 3.5 K/uL (2.0-7.4) Lymphocytes # (Auto) 1.7 K/uL (1.3-3.6) Monocytes # (Auto) 0.5 K/uL (0.3-1.0) Eosinophils # (Auto) 0.1 K/uL (0.0-0.5) Basophils # (Auto) 0.1 K/uL (0.0-0.1) Nucleated RBC Absolute Count (auto) 0.00 K/uL Sodium Level 144 mmol/L (137-145) Potassium Level 3.9 mmol/L (3.5-5.0) Chloride Level 111 mmol/L (98-107) Carbon Dioxide Level 22 mmol/L (22-30) Blood Urea Nitrogen 17 mg/dl (9-21) Creatinine 1.00 mg/dl (0.66-1.25) Glomerular Filtration Rate Calc > 60.0 Random Glucose 91 mg/dl (75-110) Calcium Level 9.4 mg/dl (8.4-10.2) Magnesium Level 2.2 mg/dl (1.7-2.2) Total Bilirubin 0.8 mg/dl (0.2-1.3) Aspartate Amino Transf (AST/SGOT) 52 U/L (0-35) Alanine Aminotransferase (ALT/SGPT) 101 U/L (0-56) Alkaline Phosphatase 83 U/L (0-126) Total Protein 7.0 g/dl (6.3-8.2) Albumin 4.3 g/dl (3.5-5.0) Chemistry Test 03/07/19 00:53 White Blood Count 5.9 k/uL (4.5-11.0) Red Blood Count 5.38 M/uL (4.00-5.60) Hemoglobin 16.0 g/dL (14.0-18.0) Hematocrit 47.3 % (42.0-52.0) Mean Corpuscular Volume 87.9 fL (80.0-96.0) Mean Corpuscular Hemoglobin 29.8 pg (26.0-33.0) Mean Corpuscular Hemoglobin Concent 33.9 g/dL (32.0-36.0) Red Cell Distribution Width 14.0 % (11.5-14.5) Platelet Count 259 K/uL (150-450) Mean Platelet Volume 6.8 fL (7.2-11.1) Neutrophils (%) (Auto) 59.8 % (39.4-72.5) Lymphocytes (%) (Auto) 29.1 % (17.6-49.6) Monocytes (%) (Auto) 8.0 % (4.1-12.4) Eosinophils (%) (Auto) 2.2 % (0.4-6.7) Basophils (%) (Auto) 0.9 % (0.3-1.4) Nucleated RBC Relative Count (auto) 0.0 /100WBC Neutrophils # (Auto) 3.5 K/uL (2.0-7.4) Lymphocytes # (Auto) 1.7 K/uL (1.3-3.6) Monocytes # (Auto) 0.5 K/uL (0.3-1.0) Eosinophils # (Auto) 0.1 K/uL (0.0-0.5) Basophils # (Auto) 0.1 K/uL (0.0-0.1) Nucleated RBC Absolute Count (auto) 0.00 K/uL Glomerular Filtration Rate Calc > 60.0 Calcium Level 9.4 mg/dl (8.4-10.2) Magnesium Level 2.2 mg/dl (1.7-2.2) Total Bilirubin 0.8 mg/dl (0.2-1.3) Aspartate Amino Transf (AST/SGOT) 52 U/L (0-35) Alanine Aminotransferase (ALT/SGPT) 101 U/L (0-56) Alkaline Phosphatase 83 U/L (0-126) Total Protein 7.0 g/dl (6.3-8.2) Albumin 4.3 g/dl (3.5-5.0) ED Course/Re-evaluation ED Course Patient was admitted to an examination room. H&P was done. The differential diagnoses was considered. Patient with no obvious distress. Affect patient's sleeping on entering the room on recheck. Patient and his claim that he is unable to sleep. That he is agitated. That is restless leg is acting up. Patient claims he is unable to walk as well. But he ambulated to the car and came into the emergency department without a wheelchair. Patient's stated that he took Resporal 1 mg and clonazepam earlier this evening without improv ement. Patient appears in no acute distress. On examination. There is no myoclonic twitching of his lower extremities. Diagnostic laboratory studies were unremarkable. His case was discussed with on-call [facility] provider 03/07/2019 1:22:38 am case discussed with Janelle Prabhakar NP, on [facility] service who agrees with no indication for admission at this time. Decision to Disposition Date: Mar 07, 2019 Decision to Disposition Time: 01:22 Depart Departure Latest Vital Signs Vital Signs Date Time Temp Pulse Resp B/P (MAP) Pulse Ox O2 Delivery O2 Flow Rate FiO2 03/07/19 01:12 67 94 03/07/19 01:00 89/74 (79) 03/07/19 00:26 97.7 15 Room Air Impression: Primary Impression: Insomnia Additional Impressions: Anxiety Restless leg syndrome Condition: Improved Disposition: HOME OR SELF-CARE Referrals: JC MARTINEZ PA-C (PCP) Patient Instructions: Anxiety (ED), Insomnia (ED), Restless Legs Syndrome (ED) Additional Instructions: Repeat doses of Restoril 1 mg, and clonazepam 0.5 mg tonight. Upon arriving home Contact your mental health worker Colleen Sanchez in the morning Problem Qualifiers Primary Impression: Insomnia Insomnia type: unspecified Qualified Codes: G47.00 - Insomnia, unspecified MILLIE CHANCE DO Mar 07, 2019 00:28
[2019-03-07 01:00] VITALS: BP 89/74
[2019-03-07 01:03] LABS: PLATELET COUNT, AUTOMATED 259 K/uL (150-450)
== END 2019-03-07 01:30 | disposition home or self-care (01) ==
LOC: ER 00:33
DX: G47.00 Insomnia, unspecified (principal); E03.9 Hypothyroidism, unspecified; G47.30 Sleep apnea, unspecified; K21.9 Gastro-esophageal reflux disease without esophagitis; F41.9 Anxiety disorder, unspecified; F32.9 Major depressive disorder, single episode, unspecified; J45.909 Unspecified asthma, uncomplicated; K27.9 Peptic ulcer, site unspecified, unspecified as acute or chronic, without hemorrhage or perforation
CPT/HCPCS: 36415; 82040; 82247; 82310; 82374; 82435; 82565; 82947; 83735; 84075; 84132; 84155; 84295; 84450; 84460; 84520; 85025; 99281

== ENCOUNTER 2019-03-14 00:16 | Day surgery (SDC) | payer MEDICARE, BC ==
[2016-06-16 16:58] VITALS: Ht 182.9 cm; Wt 76.2 kg
[~2019-03-14] VITALS: Ht 182.9 cm; Wt 76.2 kg
[2019-03-14] VITALS (8 sets, daily range): BP systolic 101–121; BP diastolic 58–87
[~2019-03-14 00:16] MED LIST changes: +LIDOCAINE/SOD BICARB 8.4% SYR ID ONE; +NORMOSOL R SOLN(*) 1000 ML BAG 1,000 ML IV PRN
[2019-03-14] MEDS ORDERED: LIDOCAINE MPF 1% 5 ML VIAL ONE (07:14)
[2019-03-14] MEDS ORDERED: PROPOFOL EMUL(*) 10MG/ML 20 ML 60 ML ONE (07:14)
[2019-03-14] MEDS ORDERED: NORMOSOL R SOLN(*) 1000 ML BAG 1,000 ML IV PRN (09:05)
[2019-03-14] MEDS ORDERED: LIDOCAINE/SOD BICARB 8.4% SYR ID ONE (09:05)
--- NOTE | 2019-03-14 11:42 | Short(Outpt) Discharge Summary ---
Discharge Summary Reason for Hosp/Final Diag: (1) Diarrhea Hospital Course & Plan: pt presented for egd and colonoscopy. he tolerated the procedures well. he said he has had thoughts of hurting himself in the past. i discussed this with his . she is comfortable taking him home. he is in counseling and doing much better than he was. she has the crisis number. this was discussed with psych who agrees with this plan. he will be sent home when criteria met. (2) Vomiting Status: Acute Departure Discharge to: Home Discharge Instructions Home Meds Active Scripts Albuterol Sulfate 90 Mcg/Act (PROAIR HFA 90 MCG/ACT) 8.5 Gm Hfa.aer.ad, 1-2 PUFF IH 2-4XD for 30 Days, #1 INHALER 1 Refill Prov:BENJAMIN MURILLO PA-C 01/21/19 Reported Medications Risperidone (RISPERIDONE) 1 Mg Tablet, 1 MG PO QHS 03/06/19 Clonazepam (CLONAZEPAM) 0.5 Mg Tab.rapdis, 0.5 MG PO BID, #6 TAB 03/06/19 Omeprazole (OMEPRAZOLE) 20 Mg Capsule.dr, 1 CAP PO, CAP 02/04/19 [Energy Pill] No Conflict Check, 1 TAB PO BID 02/04/19 Paroxetine Hcl (PAXIL CR) 25 Mg Tab.er.24h, 50 MG PO QDAY 02/04/19 Iron,Carbonyl/Vit C/Vit B12/Fa (IRON 100 PLUS TABLET) Unknown Strength Tablet, PO 01/01/19 Cider Vinegar (APPLE CIDER VINEGAR) Unknown Strength Tablet, PO 01/01/19 [place]-3 Fatty Acids/Fish Oil (FISH OIL 1,200 MG SOFTGEL) 1 Each Capsule, 1 EACH PO BID, CAPSULE 01/01/19 Ibuprofen (IBUPROFEN) 200 Mg Capsule, 1 CAP PO Q6H, CAPSULE 01/01/19 Tramadol Hcl (TRAMADOL HCL) 50 Mg Tablet, 50 MG PO Q4-6H PRN for PAIN, TAB 01/01/19 Zonisamide (ZONISAMIDE) 100 Mg Capsule, 300 MG PO QHS, CAPSULE 01/01/19 Pramipexole Di-HCl (Pramipexole ER) 2.25 Mg Tab.er.24h, 1 TAB PO DAILY 01/01/19 L.acidoph & Paracasei,B.lactis (Probiotic) 1 Each Capsule 01/01/19 Meclizine Hcl (MECLIZINE HCL) 25 Mg Tab.chew, 25 MG PO BID PRN for DIZZINESS, TAB.CHEW 11/08/18 Baclofen (BACLOFEN) 10 Mg Tablet, 10 MG PO TID PRN for HICCUPS, #30 TAB 11/08/18 Levothyroxine Sodium (SYNTHROID) 88 Mcg Tablet, 88 MCG PO QDAY 11/08/18 Tizanidine Hcl (ZANAFLEX) 2 Mg Capsule, 2 MG PO QHS PRN for PRN, CAPSULE 01/10/18 Acetaminophen (TYLENOL) 325 Mg Tablet, 325 MG PO Q6H PRN for PAIN, TAB 01/10/18 Hydroxyzine Pamoate (HYDROXYZINE PAMOATE) 50 Mg Capsule, 50 MG PO TID, CAPSULE 03/14/17 Multivitamin With Minerals (MEN'S ONE DAILY) 1 Each Tablet, 1 EACH PO DAILY 02/01/15 Activity: As Tolerated Special Instructions: DR KU'S OFFICE WILL NOTIFY YOU WITH BIOPSY RESULTS IN 7-[address] VERMA OFFICE [phone] WITH QUESTIONS/CONCERNS FOLLOWUP NEEDED WITH PRIMARY CARE PROVIDER LEAH KU Mar 14, 2019 11:42
--- NOTE | 2019-03-15 10:15 | OPERATIVE REPORT 1 ---
EVENT DATE: March 14, 2019 SURGEON: Juan Murillo MD ANESTHESIOLOGIST: Parker Denney MD ANESTHESIA: MAC SCALE INSTALLER: None. PREOPERATIVE DIAGNOSIS Vomiting and diarrhea and no previous colonoscopy. POSTOPERATIVE DIAGNOSIS Vomiting and diarrhea and no previous colonoscopy. PROCEDURE PERFORMED 1. EGD documented in [facility]. 2. Colonoscopy dictated here. FLUIDS IV Crystalloid. ESTIMATED BLOOD LOSS Minimal. SPECIMENS Sigmoid colon polyp. COMPLICATIONS None. INDICATIONS This is a 63-year-old male that has never had a colonoscopy. Recently, he has had vomiting and diarrhea, although this has resolved. Risk and benefits of the procedure explained and consent was signed. DESCRIPTION OF PROCEDURE The patient taken to the GI suite and placed in the left lateral position. MAC anesthesia was administered per Anesthesia team. EGD was performed and is documented in [facility]. Colonoscopy was then performed. Perianal and digital rectal exam were within normal limits. The colonoscope was advanced through the anus into the ascending colon. I was unable to get beyond the ascending colon because of the tortuosity in this location. The colonoscope was slowly withdrawn. The mucosa was examined along the entire length of the colon. The prep was adequate. There was a sigmoid polyp that was taken with a snare. It was completely retrieved and completely excised. It was approximately 4 mm in size and it was sessile. Carbon dioxide was suctioned from the rectum prior to withdrawing the scope. The scope was withdrawn. The patient tolerated the procedure well. There were no complications. MTDD
== END 2019-03-14 13:00 | disposition home or self-care (01) ==
LOC: OR 00:16
PROVIDERS: ATTEND Surgery
DX: K29.70 Gastritis, unspecified, without bleeding (principal); K21.9 Gastro-esophageal reflux disease without esophagitis; D12.5 Benign neoplasm of sigmoid colon
CPT/HCPCS: 00813; 43239; 45385; 87077; 88305; 88313; 88342; J2001; J2704

== ENCOUNTER → 2019-04-24 | Outpatient (CLI) | payer MEDICARE, BC ==
[2016-06-16 16:58] VITALS: BMI 24.1
[~2019-04-24] MED LIST changes: -LIDOCAINE/SOD BICARB 8.4% SYR ID ONE; -NORMOSOL R SOLN(*) 1000 ML BAG 1,000 ML IV PRN
--- NOTE | 2019-04-24 14:08 | RADIOLOGY IMAGING REPORT ---
[place] [facility] [place]: Omar Zarate : 1955 MR: [id number] V: [id number] EXAM DATE: ORDERING PHYSICIAN: BENJAMIN MURILLO TECHNOLOGIST: Location: [facility] [place] Patient: Omar Zarate : 1955 Visit/Account:[id number] Date of Sevice: 04/24/2019 EXAMINATION: CT of the Paranasal Sinuses HISTORY: Sinusitis. TECHNIQUE: Contiguous axial images were obtained through the paranasal sinuses without intravenous c ontrast administration. Coronal and sagittal reformatted images were obtained from the axial source d renee. One of the following dose optimization techniques was utilized in the performance of this exam: Autom ated exposure control; adjustment of the mA and/or kV according to the patient's size; or use of an i terative reconstruction technique. Specific details can be referenced in the facility's radiology C T exam operational policy. COMPARISON: Head CT dated 01/10/2018. FINDINGS: Maxillary sinuses: Mild mucosal thickening. Frontal sinuses: Mild nonocclusive mucosal thickening in the frontal recesses. Ethmoid air cells: Mild mucosal thickening. Sphenoid sinuses: Mild mucosal thickening. Ostiomeatal units: Patent. Nasal septum / nasal cavity: Leftward nasal septal deviation anteriorly and posteriorly. Orbits: Negative. Visualized intracranial contents/soft tissues: Negative. TMJs: Negative. IMPRESSION: Mild mucosal thickening the paranasal sinuses. Report Dictated By: Braxton Alvarez MD at 04/24/2019 1:55 PM Report E-Signed By: Braxton Alvarez MD at 04/24/2019 2:00 PM WSN:[id number]
== END ==
LOC: CT 00:43
PROVIDERS: ATTEND Physician Assistant
DX: J32.9 Chronic sinusitis, unspecified (principal)
CPT/HCPCS: 70486